=== PATIENT | female | born 1930 | race Caucasian/White ===

== ENCOUNTER 2017-03-07 15:52 | Inpatient (IN) | payer OTHER ==
[~2017-03-07] VITALS: Ht 165.1 cm; Wt 84.1 kg
[2017-03-07] VITALS (12 sets, daily range): BP systolic 130–167; BP diastolic 76–98; PULSE 72–85; TEMP 36.3–36.4; O2SAT 91–99; Ht 165.1 cm; Wt 84.1 kg
[~2017-03-07 15:52] MED LIST: ASPCH81 PO; ESSENTIAL ENZYMES PO; LETHICIN PO; MAGN400T6 PO; MINERALS PO; OMEG10007 PO; VITA PO; Vitamin D-3 PO; [UNRECOGNIZED DRUG - MIXTURE] PO; [UNRECOGNIZED DRUG - OTHER] PO; [UNRECOGNIZED DRUG - OTHER] PO
[2017-03-07] MEDS ORDERED: NiCARDipine HCL INJ 2.5 MG/ML 10 ML AMP ONE (16:00)
[2017-03-07] MEDS ORDERED: FENTANYL CITRATE INJ 50 MCG/1 ML 2 ML VIAL ONE (16:01)
[2017-03-07] MEDS ORDERED: HEPARIN SOD (PORCINE) 1000 UNIT/ML 10 ML VIAL ONE (16:01)
[2017-03-07] MEDS ORDERED: MIDAZOLAM HCL 1 MG/ML 2ML VIAL ONE (16:01)
[2017-03-07] MEDS ORDERED: NITROGLYCERIN/D5W 100MCG/ML 20ML SYR ONE (16:01)
[2017-03-07] MEDS ORDERED: MULT-506 PO (16:05)
[2017-03-07] MEDS ORDERED: ASPI-435 PO (16:05)
[2017-03-07] MEDS ORDERED: CO Q10 PO (16:06)
--- NOTE | 2017-03-07 16:11 | DIAGNOSTIC IMAGING REPORT ---
CHEST ONE VIEW PORTABLE CLINICAL HISTORY: CHEST PAIN dyspnea COMPARISON STUDY: 08/22/2006 FINDINGS: Moderate grade megaly. Findings of mild congestive failure. Diaphragms smooth. IMPRESSION: Moderate cardiomegaly. Mild congestive heart failure. Electronically signed by: Nigel Pierce M.D. 03/07/2017 4:09 PM Dictated Date/Time: 03/07/2017 4:09 PM
[2017-03-07 16:12] LABS: BASO % 0.1 %; BASO ABS # 0.01 K/uL (0-0.2); COMPLETE YES; EOS % 0.7 %; HEMATOCRIT 40.3 % (37-47); IG% 0.1 %; LYMPH % 25.1 %; LYMPH ABS # 1.85 K/uL (1.2-3.4); MEAN CORPUSCULAR HEMOGLOBIN 30.2 pg (25-34); MEAN CORPUSCULAR HGB CONC 33.3 g/dl (32-36); MEAN PLATELET VOLUME 11.2 fL (7.4-10.4); MONO % 7.3 %; NEUT % 66.7 %; PLATELET COUNT 166 K/uL (130-400); RED BLOOD COUNT 4.43 M/uL (4.2-5.4); WHITE BLOOD COUNT 7.36 K/uL (4.8-10.8)
--- NOTE | 2017-03-07 16:15 | EMERGENCY ROOM VISIT NOTE ---
History Report prepared by Pam: Carol Hernandez Under the Supervision of: Dr. Raman Brasher D.O. First contact with patient: 15:38 Stated Complaint: MYOCARDIAL INFARCTION History of Present Illness The patient is an 86 year old female who presents to the Emergency Room with complaints of persistent chest pain starting at 1400 today. She presents to the ED by EMS and received 324 mg of aspirin and [address]. She rates her discomfort as an 8/10 in severity en route. Upon arrival to the ED, she reports her pain has somewhat subsided. She was exerting herself with shopping yesterday , but was feeling normal when she went to bed at night. This morning, she slept in. When she got up she was going about her normal routine when the chest pain started. The pain goes through to her back. She denies any SOB. She only medication she takes is a baby aspirin daily. She is not on oxygen at home. She has a history of ovarian cancer. She still has her gallbladder and appendix. Source of History: patient Onset: 1400 today Position: chest Symptom Intensity: 8/10 Quality: other (pain) Timing: other (persistent) Associated Symptoms: + back pain, No SOB Review of Systems See HPI for pertinent positives & negatives. A total of 10 systems reviewed and were otherwise negative. Past Medical & Surgical Medical Problems: (1) Ovarian cancer Family History Non contributory secondary to age. Social History Marital Status: Occupation Status: retired Current/Historical Medications Scheduled Aspirin (Aspirin 81), 81 MG PO DAILY Multivitamin (Multivitamin), 1 TAB PO DAILY [Co Q10], 1 CAP PO DAILY Allergies Coded Allergies: Oxycodone (Verified Allergy, Intermediate, SEVERE NAUSEA NO APPITITE, 03/07) Physical Exam Vital Signs Date Time Temp Pulse Resp B/P Pulse Ox O2 Delivery O2 Flow Rate FiO2 03/07/17 17:40 78 16 135/90 95 Room Air 03/07/17 17:30 78 16 128/90 95 Room Air 03/07/17 16:27 97 Room Air 03/07/17 16:07 79 20 144/81 97 03/07/17 16:02 81 144/81 96 Room Air 03/07/17 15:57 83 148/90 100 Room Air 03/07/17 15:55 97 Room Air 03/07/17 15:54 36.8 79 21 144/81 97 Room Air 03/07/17 15:54 97 Room Air Physical Exam GENERAL: Patient is awake, alert, and mildly anxious appearing. EYES: The conjunctivae are clear. The pupils are round and reactive. EARS, NOSE, MOUTH AND THROAT: The nose is without any evidence of any deformity. Mucous membranes are moist tongue is midline NECK: The neck is nontender and supple. RESPIRATORY: Lung sounds diminished at both bases, there was no tachypnea or conversational dyspnea noted. CARDIOVASCULAR: Regular rate and rhythm noted there no murmurs rubs or gallops normal S1 normal S2 GASTROINTESTINAL: The abdomen is soft. Bowel sounds are present in all quadrants. Abdomen is nontender MUSCULOSKELETAL/EXTREMITIES: There is no evidence of gross deformity full range of motion is noted in the hips and shoulders SKIN: There is trace pedal edema bilaterally, no signs of cellulitis, pulses are symmetric NEUROLOGIC: Patient is awake alert and oriented x3 Medical Decision & Procedures ER Provider Diagnostic Interpretation: X-ray results as stated below per interpretation by me and the radiologist. CHEST ONE VIEW PORTABLE CLINICAL HISTORY: CHEST PAIN dyspnea COMPARISON STUDY: 08/22/2006 FINDINGS: Moderate grade megaly. Findings of mild congestive failure. Diaphragms smooth. IMPRESSION: Moderate cardiomegaly. Mild congestive heart failure. Electronically signed by: Nigel Pierce M.D. 03/07/2017 4:09 PM Dictated Date/Time: 03/07/2017 4:09 PM Laboratory Results Test 03/07/17 15:45 03/07/17 16:04 03/07/17 16:06 03/07/17 17:23 Prothrombin Time 11.5 SECONDS (9.0-12.0) Prothromb Time International Ratio 1.1 (0.9-1.1) Activated Partial Thromboplast Time 24.9 SECONDS (21.0-31.0) Partial Thromboplastin Ratio 1.0 Total Bilirubin 1.3 mg/dl (0.2-1) Direct Bilirubin 0.3 mg/dl (0-0.2) Aspartate Amino Transf (AST/SGOT) 50 U/L (15-37) Alanine Aminotransferase (ALT/SGPT) 42 U/L (12-78) Alkaline Phosphatase 110 U/L (45-117) Total Creatine Kinase 170 U/L (26-192) Creatine Kinase MB 4.1 ng/ml (0.5-3.6) Creatine Kinase MB Ratio 2.4 (0-3.0) Total Protein 7.8 gm/dl (6.4-8.2) Albumin 3.7 gm/dl (3.4-5.0) Lipase 109 U/L (73-393) Bedside Hemoglobin 13.9 g/dl (12.0-16.0) Bedside Hematocrit 41 % (37-47) Bedside Sodium 144 mEq/L (135-144) Bedside Potassium 4.1 mEq/L (3.3-5.0) Bedside Chloride 103 mEq/L (101-112) Bedside Total CO2 28 mEq/l (24-31) Bedside Blood Urea Nitrogen 16 mg/dl (7-18) Bedside Creatinine 0.9 mg/dl (0.6-1.3) Bedside Glucose (other) 104 mg/dl (70-99) Bedside Ionized Calcium (Mariza) 1.12 mmol/l (1.12-1.32) Bedside Troponin I 0.270 ng/ml (0-0.045) Kaolin Activated Coagulation Time 224 SECONDS (94-140) Laboratory results per my review. Medications Administered Medications (Trade) Dose Ordered Sig/Reji Route Start Time Stop Time Status Last Admin Dose Admin Heparin Sodium (Porcine) (Heparin Iv Bolus) 10,000 unit STK-MED ONCE .ROUTE 03/07/17 16:01 03/07/17 16:02 DC 03/07/17 16:01 9,000 UNIT Midazolam HCl (Versed Inj) 2 mg STK-MED ONCE .ROUTE 03/07/17 16:01 03/07/17 16:02 DC 03/07/17 16:01 1 MG Fentanyl Citrate (Fentanyl Inj) 100 mcg STK-MED ONCE .ROUTE 03/07/17 16:01 03/07/17 16:02 DC 03/07/17 16:01 25 MCG Eptifibatide (Integrilin Inj) 40 mg STK-MED ONCE IV 03/07/17 16:45 03/07/17 16:46 DC 03/07/17 16:45 40 MG Eptifibatide (Integrilin Inj) 75 mg STK-MED ONCE IV 03/07/17 16:45 03/07/17 16:46 DC 03/07/17 16:45 75 MG Clopidogrel Bisulfate (plAVix TAB) 600 mg STK-MED ONCE PO 03/07/17 17:32 03/07/17 17:33 DC 03/07/17 17:33 600 MG Nitroglycerin (Nitrostat Tab) 0.4 mg UD PRN SL 03/07/17 18:00 04/06/17 17:59 03/08/17 06:39 0.4 MG ECG Indication: chest pain Rate (beats per minute): 79 Rhythm: normal sinus Findings: no ectopy, other (continued ST segment elevation in high and low lateral leads and involving apical leads) Comparison ECG Date: 26-Jul-2007 Change: Changes are new. Previous EKG from EMS: NSR 62 RBBB, ST segment elevation in low lateral leads consistent with acute lateral wall VT. ED Course 155: The patient was evaluated in room B1. A complete history and physical examination were performed. 1605: The patient was taken to the laborer cook house. 1610: I discussed the patient's case with Dr. Fink, [facility] [place] - hospitalist. He will evaluate the patient for further management. Medical Decision Prior records/ancillary studies reviewed. Triage Nursing notes reviewed. Additional history obtained from EMS. The patient's history was concerning for chest pain. Differential diagnosis: Etiologies such as cardiac ischemia, aortic dissection, pulmonary embolism, pneumonia, pneumothorax, musculoskeletal, infections, pericarditis, myocarditis , esophageal rupture, gastrointestinal, as well as others were entertained. The patient is an 86-year-old female who presented to the emergency department by EMS for chest pain. I was alerted by the prehospital personnel because of an abnormal EKG the patient was made a heart alert for what appeared to be a low lateral wall myocardial infarction. The patient was taken directly to room B 1. The on-call service station manager arrived at the patient's room prior to her arrival and we reviewed her EKGs together. The patient was continuing to have pain. She was treated with aspirin and nitroglycerin prior to arrival. She was given a dose of heparin in the emergency department. I discussed the patient 's EKG with her and informed her that it was very consistent with an acute myocardial infarction. She was agreeable to being evaluated by the service station manager for cardiac catheterization. granite chip terrazzo finisher also discussed her options with her and she chose to go to the [facility]aying Machine Operator for emergent heart catheterization. The patient's initial EKG in our emergency department showed some progression into the apical leads with ST segment elevation and bundle-branch block. This appeared to be new compared to her most previous EKG. The patient was reevaluated and her pain started to improve but she was taken to the cardiac catheterization lab rather quickly. There was a report that the patient had hypoxia upon arrival of the prehospital personnel but this was not observed in the emergency Department the patient's oxygen saturation was normal and her chest x-ray only showed mild congestion. Consults Time Called: 1607 Consulting Physician: Dr. Fink [facility] [place] - hospitalist Returned Call: 1610 I discussed the patient's case with him. The patient will be evaluated for further management. Impression Primary Impression: Acute myocardial infarction of apical-lateral wall Additional Impressions: RBBB Chest pain Scribe Attestation The scribe's documentation has been prepared under my direction and personally reviewed by me in its entirety. I confirm that the note above accurately reflects all work, treatment, procedures, and medical decision making performed by me. Departure Information Dispostion Being Evaluated By Hospitalist Referrals Jc Rae D.ONolvia (PCP) Problem Qualifiers Additional Impressions: Chest pain Chest pain type: unspecified Qualified Codes: R07.9 - Chest pain, unspecified
[2017-03-07 16:18] LABS: ISTAT CREATININE 0.9 mg/dl (0.6-1.3); ISTAT HEMOGLOBIN 13.9 g/dl (12.0-16.0); ISTAT IONIZED CALCIUM 1.12 mmol/l (1.12-1.32)
[2017-03-07 16:20] LABS: INR 1.1 (0.9-1.1); PROTHROMBIN TIME (PATIENT) 11.5 SECONDS (9.0-12.0)
[2017-03-07] MEDS ORDERED: EPTIFIBATIDE 2 MG/ML 10 ML VIAL IV ONE (16:45)
[2017-03-07] MEDS ORDERED: EPTIFIBATIDE 0.75 MG/ML 75MG VIAL IV ONE (16:45)
[2017-03-07 16:57] LABS: BUN/CREATININE RATIO 16.4 (10-20); CKMB/CK RATIO 2.4 (0-3.0); CREATININE 0.94 mg/dl (0.60-1.20); POTASSIUM 4.5 mmol/L (3.5-5.1)
[2017-03-07] MEDS ORDERED: ADENOSINE IV SOLN 3 MG/ML 2 ML VIAL ONE (16:58)
[2017-03-07] MEDS ORDERED: CLOPIDOGREL BISULFATE 300 MG TAB PO ONE (17:32)
[2017-03-07] MEDS ORDERED: ONDANSETRON INJ 2 MG/ML 2 ML VIAL IV PRN (18:00)
[2017-03-07] MEDS ORDERED: LORAZEPAM INJ 0.5 MG in SYRINGE 0.75 ML IV PRN (18:00)
[2017-03-07] MEDS ORDERED: ACETAMINOPHEN 325 MG TAB PO PRN (18:00)
[2017-03-07] MEDS ORDERED: ATROPINE SULFATE 0.1 MG/ML 5ML SYR IV PRN (18:00)
[2017-03-07] MEDS ORDERED: EPTIFIBATIDE BOLUS / DRIP IV ONE (18:00)
[2017-03-07] MEDS ORDERED: SODIUM CHLORIDE 0.9% 1000ML 1,000 ML IV SCH (18:00)
[2017-03-07] MEDS ORDERED: ONDANSETRON INJ 8 MG in DEXTROSE 5% 50ML 50 ML IV PRN (18:00)
--- NOTE | 2017-03-07 18:24 | History and Physical ---
History & Physical Date & Time of Service: March 07, 2017 at 18:02 Chief Complaint: Myocardial Infarction Primary Care Physician: Jc Rae D.O. History of Present Illness Source: patient 86 y/o female, with PMHx of ovarian cancer, who presents to the ED w/ complaints of CP s/p cardiac catheterization by Dr. Greer for STEMI. Patient was seen postop. She is feeling well. Just overall fatigued. +nausea. +SOB. Patient denies any fever, chills, sweats, lightheadedness, dizziness, vision changes, CP , palpitations, edema, wheezing, cough, abdominal pain, vomiting, diarrhea, urinary symptoms, melena, numbness/tingling, weakness, muscle/joint pain, anxiety/depression, active bleeding, or new skin discoloration/changes. Past Medical/Surgical History PMHx: 1. Ovarian cancer Social History Smoking Status: Never Smoker Marital Status: Occupational Status: retired Immunizations History of Influenza Vaccine: Yes Influenza Vaccine Date: Sep 27, 2006 History of Tetanus Vaccine?: Yes Tetanus Immunization Date: Jan 22, 2006 History of Pneumococcal: Yes Pneumococcal Date: Jul 25, 2005 History of Hepatitis B Vaccine: No Multi-Drug Resistant Organisms History of MDRO: No Allergies Coded Allergies: Oxycodone (Verified Allergy, Intermediate, SEVERE NAUSEA NO APPITITE, 03/07) Home Medications Scheduled Aspirin (Aspirin 81), 81 MG PO DAILY Multivitamin (Multivitamin), 1 TAB PO DAILY [Co Q10], 1 CAP PO DAILY Physical Exam Vital Signs Date Time Temp Pulse Resp B/P Pulse Ox O2 Delivery O2 Flow Rate FiO2 03/07/17 17:40 78 16 135/90 95 Room Air 03/07/17 17:30 78 16 128/90 95 Room Air 03/07/17 16:27 97 Room Air 03/07/17 16:07 79 20 144/81 97 03/07/17 16:02 81 144/81 96 Room Air 03/07/17 15:57 83 148/90 100 Room Air 03/07/17 15:55 97 Room Air 03/07/17 15:54 36.8 79 21 144/81 97 Room Air 03/07/17 15:54 97 Room Air General Appearance: no apparent distress Head: normocephalic, atraumatic Eyes: normal inspection, PERRL ENT: hearing grossly normal Neck: supple Respiratory/Chest: no respiratory distress, no accessory muscle use, + wheezing (expiratory wheeze noted throughout all lung hernandez ) Cardiovascular: regular rate, rhythm Abdomen/GI: normal bowel sounds, non tender, soft Extremities/Musculoskelatal: no calf tenderness, no pedal edema Neurologic/Psych: alert, normal mood/affect, oriented x 3 Skin: warm/dry, no rash, + cyanosis (upper extremity nail beds ) Diagnostics Laboratory Results Results Past 24 Hours Test 03/07/17 15:45 03/07/17 16:04 03/07/17 16:06 03/07/17 16:47 Range/Units White Blood Count 7.36 4.8-10.8 K/uL Red Blood Count 4.43 4.2-5.4 M/uL Hemoglobin 13.4 12.0-16.0 g/dL Hematocrit 40.3 37-47 % Mean Corpuscular Volume 91.0 80-100 fL Mean Corpuscular Hemoglobin 30.2 25-34 pg Mean Corpuscular Hemoglobin Concent 33.3 32-36 g/dl Platelet Count 166 130-400 K/uL Mean Platelet Volume 11.2 7.4-10.4 fL Neutrophils (%) (Auto) 66.7 % Lymphocytes (%) (Auto) 25.1 % Monocytes (%) (Auto) 7.3 % Eosinophils (%) (Auto) 0.7 % Basophils (%) (Auto) 0.1 % Neutrophils # (Auto) 4.90 1.4-6.5 K/uL Lymphocytes # (Auto) 1.85 1.2-3.4 K/uL Monocytes # (Auto) 0.54 0.11-0.59 K/uL Eosinophils # (Auto) 0.05 0-0.5 K/uL Basophils # (Auto) 0.01 0-0.2 K/uL RDW Standard Deviation 49.6 36.4-46.3 fL RDW Coefficient of Variation 14.7 11.5-14.5 % Immature Granulocyte % (Auto) 0.1 % Immature Granulocyte # (Auto) 0.01 0.00-0.02 K/uL Prothrombin Time 11.5 9.0-12.0 SECONDS Prothromb Time International Ratio 1.1 0.9-1.1 Activated Partial Thromboplast Time 24.9 21.0-31.0 SECONDS Partial Thromboplastin Ratio 1.0 Sodium Level 142 136-145 mmol/L Potassium Level 4.5 3.5-5.1 mmol/L Chloride Level 108 98-107 mmol/L Carbon Dioxide Level 28 21-32 mmol/L Anion Gap 6.0 18.0 16-25 mmol/L Blood Urea Nitrogen 15 7-18 mg/dl Creatinine 0.94 0.60-1.20 mg/dl Est Creatinine Clear Calc Drug Dose 45.3 ml/min Estimated GFR () 62.8 Estimated GFR (Non- 54.2 BUN/Creatinine Ratio 16.4 10-20 Random Glucose 91 70-99 mg/dl Calcium Level 9.0 8.5-10.1 mg/dl Total Bilirubin 1.3 0.2-1 mg/dl Direct Bilirubin 0.3 0-0.2 mg/dl Aspartate Amino Transf (AST/SGOT) 50 15-37 U/L Alanine Aminotransferase (ALT/SGPT) 42 12-78 U/L Alkaline Phosphatase 110 45-117 U/L Total Creatine Kinase 170 26-192 U/L Creatine Kinase MB 4.1 0.5-3.6 ng/ml Creatine Kinase MB Ratio 2.4 0-3.0 Troponin I 0.436 0-0.045 ng/ml Total Protein 7.8 6.4-8.2 gm/dl Albumin 3.7 3.4-5.0 gm/dl Lipase 109 73-393 U/L Bedside Hemoglobin 13.9 12.0-16.0 g/dl Bedside Hematocrit 41 37-47 % Bedside Sodium 144 135-144 mEq/L Bedside Potassium 4.1 3.3-5.0 mEq/L Bedside Chloride 103 101-112 mEq/L Bedside Total CO2 28 24-31 mEq/l Bedside Blood Urea Nitrogen 16 7-18 mg/dl Bedside Creatinine 0.9 0.6-1.3 mg/dl Bedside Glucose (other) 104 70-99 mg/dl Bedside Ionized Calcium (Mariza) 1.12 1.12-1.32 mmol/l Bedside Troponin I 0.270 0-0.045 ng/ml Kaolin Activated Coagulation Time 296 94-140 SECONDS Test 03/07/17 17:23 03/07/17 17:48 Range/Units Kaolin Activated Coagulation Time 224 94-140 SECONDS Diagnostic Radiology CHEST ONE VIEW PORTABLE CLINICAL HISTORY: CHEST PAIN dyspnea COMPARISON STUDY: 08/22/2006 FINDINGS: Moderate grade megaly. Findings of mild congestive failure. Diaphragms smooth. IMPRESSION: Moderate cardiomegaly. Mild congestive heart failure. Electronically signed by: Nigel Pierce M.D. 03/07/2017 4:09 PM Dictated Date/Time: 03/07/2017 4:09 PM The status of this report is Signed. Draft = Not yet reviewed or approved by Radiologist. Signed = Reviewed and approved by Radiologist. EKG OVIDIO BRO ID:[id number] 07-MAR-2017 15:57:37 [facility] Sinus rhythm with 1st degree A-V block Right bundle branch block Left anterior fascicular block Bifascicular block Anterolateral infarct , possibly acute ACUTE AL / STEMI Abnormal ECG When compared with ECG of 26-JUL-2007 15:41, Significant changes have occurred Confirmed by Ronnell Shetty ([id number]) on 03/07/2017 5:31:42 PM 25mm/s 10mm/mV 150Hz 8.0 SP2 12SL 241 SHIN: 13 Referred by: Referred Self Confirmed By: Ronnell Shetty Vent. rate 79 BPM ME interval 228 ms QRS duration 142 ms QT/QTc 434/497 ms P-R-T axes 72 -49 28 1930 (86 yr) Female Room: Loc:15 Family Services Coordinator:NIKOS Ruffin ind: Impression Assessment and Plan 86 y/o female, with PMHx of ovarian cancer, who presents to the ED w/ complaints of CP s/p cardiac catheterization by Dr. Greer for STEMI on 03/07 STEMI s/p cardiac catheterization: - Admit to ICU - Cardiology following - ECHO pending - Continue ASA mg daily - Lipitor 80 mg daily, Plavix 75 mg daily, Lisinopril 5 mg daily, and Lopressor 25 mg BID started per cardiology - Lipid panel and ha1c pending - Follow CBC and PRP Wheezing: - Saturating at 85% on RA- O2 protocol- does NOT wear O2 supplement at home - DuoNebs PRN GI Prophylaxis: Protonix daily, IV Zofran PRN DVT prophylaxis: GILBERTO and SCDs Dispo: Discharge uncertain at this time Level of Care Critical Care VTE Prophylaxis Given or contraindicated: T.E.D. Stockings, SCD's
--- NOTE | 2017-03-07 18:29 | Procedure Note ---
Pre-Mod Sedation Assessment General Date of Moderate Sedation: March 07, 2017. Vital Signs: Vital Signs Past 12 Hours Date Time Temp Pulse Resp B/P Pulse Ox O2 Delivery O2 Flow Rate FiO2 03/07/17 17:40 78 16 135/90 95 Room Air 03/07/17 17:30 78 16 128/90 95 Room Air 03/07/17 16:27 97 Room Air 03/07/17 16:07 79 20 144/81 97 03/07/17 16:02 81 144/81 96 Room Air 03/07/17 15:57 83 148/90 100 Room Air 03/07/17 15:55 97 Room Air 03/07/17 15:54 36.8 79 21 144/81 97 Room Air 03/07/17 15:54 97 Room Air Review Cardiovascular: regular rate, rhythm, no JVD, + systolic murmur, + pertinent finding (pretibial edema) Abdomen: non tender, soft Lungs: lungs clear Pre-Sedation Airway Assessment Able to Visualize Vocal Cords: No Smoking Status: Never Smoker Mallampati Classification: Class III Procedure Planning Contraindications-for Mod Sed: None Yes Notes The planned sedation has been discussed with the patient and consent obtained. I have identified the patient, determined the appropriateness of sedation and have assessed the patient immediately prior to the procedure. All medicine(s) and interventions are by my order.
--- NOTE | 2017-03-07 18:30 | Procedure Note ---
Post-Mod Sedation Assessment General Date of Moderate Sedation March 07, 2017. Vital Signs: Vital Signs Past 12 Hours Date Time Temp Pulse Resp B/P Pulse Ox O2 Delivery O2 Flow Rate FiO2 03/07/17 17:40 78 16 135/90 95 Room Air 03/07/17 17:30 78 16 128/90 95 Room Air 03/07/17 16:27 97 Room Air 03/07/17 16:07 79 20 144/81 97 03/07/17 16:02 81 144/81 96 Room Air 03/07/17 15:57 83 148/90 100 Room Air 03/07/17 15:55 97 Room Air 03/07/17 15:54 36.8 79 21 144/81 97 Room Air 03/07/17 15:54 97 Room Air Review - Discharge Criteria Vital Signs Stable: Yes Alert/Oriented/Conversant: Yes Returned to Baseline Mental St: Yes Nausea Absent/Minimal: Yes Pain/Discomfort/Absent/Minimal: Yes Normal/Baseline Respirations: Yes Active Bleeding?: No Pt Received D/C Instructions: N/A Prescriptions Given: None Specific Proced. D/C Criteria Distal Pulses Present (Cardiac: Yes Groin site assessed-Card Cath: N/A Voided Prior To Discharge: N/A Discharged Patients Adult Escort/Transportation: N/A
--- NOTE | 2017-03-07 18:39 | Cardiac Catheterization ---
Procedure Note Procedure Date March 07, 2017. Pre-Procedure Diagnosis STEMI AUC Score 9 Post-Procedure Diagnosis Severe CAD, Successful PCI, Decreased LV Systolic Function, Elevated Intracardiac Pressures Procedure(s) Performed Coronary Angiography, Left Heart Cath, LV Angiography, PTCA, Aspiration Thrombectomy [employer] Dr. Greer Deployment Specialist(s) Cheli Apple, RTR Estimated Blood Loss 50 ml Medication(s) Clopidogrel (600 milligrams p.o. post PCI), Fentanyl, Heparin, Nicardipine ( Intracoronary and intra-arterial), Versed, Lidocaine 1%, Adenosine ( Intracoronary) Summary of Findings Clinical indications: Acute anterolateral myocardial infarction on electrocardiogram. Catheterization site: 6 Serbian glide sheath right radial artery. Equipment: 6 Serbian EBU 3.5 guide catheter, 5 Serbian brachial 3.5 diagnostic catheter, 6 Serbian pigtail diagnostic catheter, Subarctic Limited Sprinter 2.5 x 12 millimeter balloon dilatation catheter, [employer] extraction catheter, [place] guidewire. Protocol and findings: left coronary angiography was 1st performed with the guide catheter. This revealed a total early mid LAD occlusion. MAREN 0 flow. A cougar guidewire was then easily advanced into the distal LAD. It was felt that the guidewire had wrapped around the apex of the left ventricle. It repeatedly took the same track. PTCA was then performed to the mid LAD. MAREN 1 flow was established to the early distal LAD. The early distal LAD now had a total occlusion. After further PTCA to the latter mid and distal LAD , administration of intracoronary nicardipine and adenosine,and aspiration thrombectomy MAREN 3 flow was established into the distal LAD. The patient also received intracoronary nicardipine and adenosine. following balloon angioplasty the appearance of the mid LAD was smooth. There was no evidence of any underlying stenosis. No evidence of a dissection. The distal LAD was a very small caliber. The distal LAD had a focal 30-50 percent narrowing which may have represented a residual thrombus versus stenosis. MAREN 3 flow into the distal LAD. The caliber of distal LAD was approximately 1-1.5 millimeter. After flow was established into the distal LAD was seen to guidewire was actually in a distal septal perforating branch. It was repositioned into the distal LAD. 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 The contrast would clear with each beat quickly. Aspiration thrombectomy removed several very small red thrombi. Because there was no evidence of any underlying residual stenosis it was decided not to deploy a stent in the LAD. Right coronary angiography was then performed. Left ventricular angiography was then performed. Following reperfusion of the LAD the patient's chest pain and ST segment elevations in the monitored leads improved. She was hemodynamically stable. No significant arrhythmias. Fluoroscopy revealed coronary calcifications. The coronary circulation was right dominant. Short and large caliber left main coronary artery without obstructive disease. It gave rise to large caliber left anterior descending and left circumflex coronary arteries. Initial angiography revealed a total early mid LAD occlusion. The proximal LAD gave rise to a long medium caliber diagonal artery which had minor luminal irregularities. Following the origin of a prominent bifurcating septal perforating branch early mid LAD had a total occlusion. MARNE 0 flow. After initial PTCA MAREN 1 flow. After further PTCA, aspiration thrombectomy, nd administration of intracoronary nicardipine and adenosine MAREN 3 flow was present into the distal LAD. There is no evidence of any residual stenosis in the mid LAD. No evidence of dissection. No evidence of any residual thrombus. No perforation. The distal LAD had a small residual filling defect with approximately 30-50 percent luminal diameter narrowing. This was felt to likely represent residual thrombus versus an underlying stenosis. the left circumflex had an ostial proximal 20 percent stenosis. The mid circumflex gave rise to a long medium calibr 1st marginal artery which had a 0-10 percent proximal stenosis. The mid circumflex had a 0-10 percent stenosis. The distal circumflex gave rise to a long small to medium caliber 2nd marginal artery and a small to medium caliber posterolateral artery. These vessels had mild 0-10 percent stenoses. The right coronary artery was a medium large caliber vessel. Proximal 0-10 percent stenosis. Mid 20 percent stenosis. The mid RCA gave rise to a prominent right ventricular branch. The latter mid RCA had a 10-20 percent stenosis. The distal RCA gave rise to a long small caliber posterior descending artery and a small caliber posterolateral artery. Left ventricular angiography performed from the 30 degree right anterior oblique projection revealed normal wall motion in the posterobasal, diaphragmatic, and anterobasal segments. The anterolateral segment was hypokinetic. The apex was akinetic to dyskinetic. estimated left ventricular ejection fraction 40 percent. No mitral regurgitation noted. Hemostasis: Terumo TR band. Complications: None. Plan: The patient was given a loading dose of oral clopidogrel post intervention. She was admitted to the intensive care unit. Remain on intravenous Integrilin for 18 hours. She will be started on beta-umu, JOS inhibitor, and statin therapy. Serial electrocardiograms and cardiac enzymes. Serial CBC and metabolic profiles. Echocardiogram to further assess left ventricular wall motion. Hemodynamics Rest Ao: 143/75/105 millimeters Hg Final Ao: 115/61/84 millimeters Hg LV: 115/25 millimeters Hg Recommendations Medical therapy and/or Counseling, PCI without planned CABG Specimens Several small red thrombi removed with aspiration thrombectomy. These were not submitted. Radiation Exposure (mGy) 3981 Contrast (mls) 270 milliliters Visipaque Fluids (cc crystalloids) 130 milliliters Drains None Anesthesia Intravenous Versed and fentanyl. Lidocaine 1 % local Procedural Complication(s) None Disposition ICU ACC Data Cardiac Status Clinical evaluation leading to the procedure CAD Presntation: STEMI Anginal Classification: CCS IV Heart Failure: No Cardiogenic Shock w/in 24Hrs: No Cardiac Arrest w/in 24Hrs: No Imaging studies past 6 months: No Stress studies past 6 months: No Standard Exercise Stress Test: No Stress Echocardiogram: No Stress Testing w/SPECT MPI: No Cardiac CTA: No Coronary Anatomy Dominant: Right Left Main (% Stenosis): Normal LAD (% Stenosis): Mid (100), Distal (30-50) D1 (% Stenosis): Proximal (0-10) Circumflex (% Stenosis): Ostial (20), Proximal (20), Mid (0-10) OM1 (% Stenosis): Proximal (0-10) OM2 (% Stenosis): Normal L PL1 (% Stenosis): Normal RCA (% Stenosis): Proximal (0-10), Mid (20,10-20) R PDA (% Stenosis): Normal R PL1 (% Stenosis): Normal Left Ventricular Angiography EF (%): 40 Wall Motion: Inferior (Normal), Apical (Akinetic), Anterior (Hypokinetic) Mitral Regurgitation: None Diagnostic Physician's Name: Johnny Greer M.D. Status: Emergency Closure Device Percutaneous Entry Location: Radial Closure Device: Radial Band Recommendations: Medical therapy and/or Counseling, PCI without planned CABG PCI Indication: Immediate PCI for STEMI Lesion Segment Name: Mid LAD Culprit Artery: Yes Stenosis Prior to Rx (%): 100 Chronic Total Occlusion: No IVUS: No FFR: No Pre-Procedure MAREN Flow: 3 Previously Treated Lesion: No Lesion Complexity: Non-High/Non-C Lesion Length (mm): 15 Thrombus Present: Yes Bifurcation Lesion: No Guidewire Across Lesion: Yes Guidewire: Stenosis Post-Procedure (%): 0-10 Post-Procedure MAREN Flow: 3 Device(s) Deployed: No Intraprocedure Events Significant Dissection: No Perforation: No
[2017-03-07 19:18] LABS: BASO % 0.1 %; BASO ABS # 0.01 K/uL (0-0.2); EOS % 0.1 %; HEMATOCRIT 38.7 % (37-47); IG% 0.1 %; LYMPH % 8.4 %; LYMPH ABS # 0.66 K/uL (1.2-3.4); MEAN CELL VOLUME 91.5 fL (80-100); MEAN CORPUSCULAR HEMOGLOBIN 30.3 pg (25-34); MEAN PLATELET VOLUME 10.4 fL (7.4-10.4); MONO % 3.7 %; NEUT % 87.6 %; PLATELET COUNT 181 K/uL (130-400); RED BLOOD COUNT 4.23 M/uL (4.2-5.4); WHITE BLOOD COUNT 7.89 K/uL (4.8-10.8)
[2017-03-07 19:23] LABS: COMPLETE YES; MEAN CORPUSCULAR HGB CONC 33.1 g/dl (32-36)
[2017-03-07 19:39] LABS: BUN/CREATININE RATIO 18.3 (10-20); CALCIUM 8.5 mg/dl (8.5-10.1); CHOLESTEROL 166 mg/dl (0-200); CHOLESTEROL/HDL RATIO 2.4; CREATININE 0.86 mg/dl (0.60-1.20); HDL CHOLESTEROL 68 mg/dl; POTASSIUM 4.3 mmol/L (3.5-5.1); TRIGLYCERIDES 49 mg/dl (0-150); VERY LOW DENSITY LIPOPROT CALC 10 mg/dl
[2017-03-07] MEDS: METOPROLOL TARTRATE 25 MG TAB PO SCH (19:59)
[2017-03-07] MEDS ORDERED: ALBUT/IPRATROP 3MG/0.5MG NEB 3 ML VIAL INH SCH (20:00)
[2017-03-07] MEDS: ALBUT/IPRATROP 3MG/0.5MG NEB 3 ML VIAL INH SCH (20:00)
[2017-03-07] MEDS ORDERED: FUROSEMIDE INJ 20 MG in SYRINGE 0 ML IV ONE (20:00)
[2017-03-07] MEDS: EPTIFIBATIDE INJ 75 MG PREMIXED IV SCH ×2 (20:19→22:15)
--- NOTE | 2017-03-07 21:40 | Critical Care Consultation ---
Critical Care Consultation Date of Consultation: March 07, 2017. Attending Physician: Charles Oconnell D.O. Reason for Consultation: S/P Heart Catheterization History of Present Illness Ramya Rodriguez is an 86-year-old female who presented to the emergency department today with her son via EMS for sudden onset chest pain radiating to her back at an 8 out of 10. She states the pain came over her while preparing lunch and she continued to weight to about 1 PM before contacting a granddaughter. Her granddaughter stated to having a heart attack and coming to take you to the emergency department; some point her son was also called and he called EMS to transport his mother to the hospital. She denies any alleviating or aggravating symptoms during this pain. She does state that she's had intermittent chest pain, more consistent with reflux over the past several months; at which point drinking water would help. She tried this again today and it did not alleviate this pain. In the EMS vehicle, she chewed 324 mg of aspirin and received 2 nitroglycerin. By the time she presented to [facility] ED; the majority of her pain had somewhat subsided. When talking to me this evening she stated that she felt that she had overexerted herself while shopping with her daughter. She denied shortness of breath, loss of consciousness, nausea, dizziness or lightheadedness. She has had no recent illnesses and was in her normal health as of lately. She states that she routinely follows with her family practice doctor and for the most part all tests and labs are normal. She does state that she know she has a "leaky valve ". Otherwise she says she has taken good care of her body by never smoking or drinking and taking supplemental vitamins. EKG in the emergency department demonstrated ST segment elevation in the lateral leads and she was taken to the [facility] by Dr. Greer where he removed several small red thrombi with aspiration thrombectomy. He approached via her right radial artery. Patient did not receive stents during this catheterization. Patient denies fever/chills, shortness of breath/dyspnea, or cough. She does state that she has ongoing mild pain in the same location as this afternoon; however, it is now a nagging 1 out of 10. She denies change in bowel habits or urinary habits, upset stomach, abdominal pain. She denies numbness or tingling of her extremities. She is in overall good spirits. Past Medical/Surgical History Medical Problems: Ovarian cancer Murmur Family History Noncontributory Social History Smoking Status: Never Smoker Smokeless Tobacco Use: No Alcohol Use: none Drug Use: none Marital Status: Housing Status: lives with family Occupation Status: retired Allergies Coded Allergies: Oxycodone (Verified Allergy, Intermediate, SEVERE NAUSEA NO APPITITE, 03/07) Home Medications Scheduled Aspirin (Aspirin 81), 81 MG PO DAILY Multivitamin (Multivitamin), 1 TAB PO DAILY [Co Q10], 1 CAP PO DAILY Current Inpatient Medications Current Inpatient Medications Medications (Trade) Dose Ordered Sig/Reji Route Start Time Stop Time Status Last Admin Dose Admin Nitroglycerin (Nitrostat Tab) 0.4 mg UD PRN SL 03/07/17 18:00 04/06/17 17:59 Atropine Sulfate (Atropine Sulfate 0.1MG/Ml Inj) 0.5 mg ONE PRN IV 03/07/17 18:00 04/06/17 17:59 Ondansetron HCl 4 mg 4 mg Q6H PRN IV 03/07/17 18:00 04/06/17 17:59 Ondansetron HCl/ Dextrose (Zofran Inj/D5 50ml) 54 ml @ 200 mls/hr Q6H PRN IV 03/07/17 18:00 04/06/17 17:59 Aspirin (Ecotrin Tab) 81 mg QAM PO 03/08/17 09:00 04/07/17 08:59 Clopidogrel Bisulfate (plAVix TAB) 75 mg QAM PO 03/08/17 09:00 04/07/17 08:59 Atorvastatin Calcium (Lipitor Tab) 80 mg QAM PO 03/08/17 09:00 04/07/17 08:59 Metoprolol Tartrate (Lopressor Tab) 25 mg Q12 PO 03/07/17 21:00 04/06/17 20:59 03/07/17 19:59 25 MG Acetaminophen 650 mg 650 mg Q4H PRN PO 03/07/17 18:00 04/06/17 17:59 Lorazepam/Syringe (Ativan Inj/ Syringe) 1 ml @ 1 mls/min Q6H PRN IV 03/07/17 18:00 04/06/17 17:59 Lisinopril (Zestril Tab) 5 mg QAM PO 03/08/17 09:00 04/07/17 08:59 Pantoprazole Sodium 40 mg 40 mg QAM PO 03/08/17 09:00 04/07/17 08:59 Eptifibatide (Integrilin Inj) 100 ml @ 14 mls/hr Q7H9M IV 03/07/17 18:45 03/08/17 11:00 03/07/17 20:19 14 MLS/HR Miscellaneous (Stop Order) 1 ea TODAY@1100 ONCE N/A 03/08/17 11:00 03/08/17 11:01 Albuterol/ Ipratropium (Duoneb) 3 ml QIDR INH 03/07/17 20:00 04/06/17 19:59 03/07/17 20:00 3 ML Review of Systems 12 systems reviewed and negative other than previously mentioned in the HPI. Physical Exam Date Time Temp Pulse Resp B/P Pulse Ox O2 Delivery O2 Flow Rate FiO2 03/07/17 20:40 74 14 97 Nasal Cannula 2.0 03/07/17 20:30 83 31 167/92 98 03/07/17 20:00 99 Nasal Cannula 2.0 03/07/17 20:00 36.3 74 16 167/94 99 Nasal Cannula 2.0 03/07/17 19:30 81 22 161/91 99 03/07/17 19:15 82 31 154/81 99 03/07/17 19:03 36.4 79 16 141/76 95 Room Air 03/07/17 19:00 81 19 159/98 99 03/07/17 18:45 83 28 157/89 98 03/07/17 18:30 85 24 164/93 98 03/07/17 17:40 78 16 135/90 95 Room Air 03/07/17 17:30 78 16 128/90 95 Room Air 03/07/17 16:27 97 Room Air 03/07/17 16:07 79 20 144/81 97 03/07/17 16:02 81 144/81 96 Room Air 03/07/17 15:57 83 148/90 100 Room Air 03/07/17 15:55 97 Room Air 03/07/17 15:54 36.8 79 21 144/81 97 Room Air 03/07/17 15:54 97 Room Air Vital Signs - as noted Laboratory Data - as noted Physical Exam: General - NAD, resting comfortably in bed Eyes - PERRL, EOMI No icterus, gaze conjugate ENT - Mucosa moist, no lesions or candidiasis Neck - Supple, trachea midline, no masses or lymphadenopathy, no JVD or bruits Lungs - No paradoxical chest wall movement, diminished bilaterally, no wheezes, rales, or rhonchi Heart - Reg rate and rhythm, No murmur appreciated, rubs, clicks, or gallops appreciated Abdomen - normoactive BS present, no bruits noted, tympanic to percussion, soft , nontender, nondistended, no organomegaly Extremities - No edema, pedal pulses intact, clean and dry bandage at site of right radial approach. Neuro - A&OX4 Strength extremities equal and appropriate bilaterally Reflexes: normal and equal CN:PERRL, EOMI, no facial asymmetry, uvula/tongue midline Laboratory Results Last 24 Hours Test 03/07/17 15:45 03/07/17 16:04 03/07/17 16:06 03/07/17 16:47 White Blood Count 7.36 K/uL Red Blood Count 4.43 M/uL Hemoglobin 13.4 g/dL Hematocrit 40.3 % Mean Corpuscular Volume 91.0 fL Mean Corpuscular Hemoglobin 30.2 pg Mean Corpuscular Hemoglobin Concent 33.3 g/dl Platelet Count 166 K/uL Mean Platelet Volume 11.2 fL Neutrophils (%) (Auto) 66.7 % Lymphocytes (%) (Auto) 25.1 % Monocytes (%) (Auto) 7.3 % Eosinophils (%) (Auto) 0.7 % Basophils (%) (Auto) 0.1 % Neutrophils # (Auto) 4.90 K/uL Lymphocytes # (Auto) 1.85 K/uL Monocytes # (Auto) 0.54 K/uL Eosinophils # (Auto) 0.05 K/uL Basophils # (Auto) 0.01 K/uL RDW Standard Deviation 49.6 fL RDW Coefficient of Variation 14.7 % Immature Granulocyte % (Auto) 0.1 % Immature Granulocyte # (Auto) 0.01 K/uL Prothrombin Time 11.5 SECONDS Prothromb Time International Ratio 1.1 Activated Partial Thromboplast Time 24.9 SECONDS Partial Thromboplastin Ratio 1.0 Sodium Level 142 mmol/L Potassium Level 4.5 mmol/L Chloride Level 108 mmol/L Carbon Dioxide Level 28 mmol/L Anion Gap 6.0 mmol/L 18.0 mmol/L Blood Urea Nitrogen 15 mg/dl Creatinine 0.94 mg/dl Est Creatinine Clear Calc Drug Dose 45.3 ml/min Estimated GFR () 62.8 Estimated GFR (Non- 54.2 BUN/Creatinine Ratio 16.4 Random Glucose 91 mg/dl Calcium Level 9.0 mg/dl Total Bilirubin 1.3 mg/dl Direct Bilirubin 0.3 mg/dl Aspartate Amino Transf (AST/SGOT) 50 U/L Alanine Aminotransferase (ALT/SGPT) 42 U/L Alkaline Phosphatase 110 U/L Total Creatine Kinase 170 U/L Creatine Kinase MB 4.1 ng/ml Creatine Kinase MB Ratio 2.4 Troponin I 0.436 ng/ml Total Protein 7.8 gm/dl Albumin 3.7 gm/dl Lipase 109 U/L Bedside Hemoglobin 13.9 g/dl Bedside Hematocrit 41 % Bedside Sodium 144 mEq/L Bedside Potassium 4.1 mEq/L Bedside Chloride 103 mEq/L Bedside Total CO2 28 mEq/l Bedside Blood Urea Nitrogen 16 mg/dl Bedside Creatinine 0.9 mg/dl Bedside Glucose (other) 104 mg/dl Bedside Ionized Calcium (Mariza) 1.12 mmol/l Bedside Troponin I 0.270 ng/ml Kaolin Activated Coagulation Time 296 SECONDS Test 03/07/17 17:23 03/07/17 19:06 Kaolin Activated Coagulation Time 224 SECONDS White Blood Count 7.89 K/uL Red Blood Count 4.23 M/uL Hemoglobin 12.8 g/dL Hematocrit 38.7 % Mean Corpuscular Volume 91.5 fL Mean Corpuscular Hemoglobin 30.3 pg Mean Corpuscular Hemoglobin Concent 33.1 g/dl Platelet Count 181 K/uL Mean Platelet Volume 10.4 fL Neutrophils (%) (Auto) 87.6 % Lymphocytes (%) (Auto) 8.4 % Monocytes (%) (Auto) 3.7 % Eosinophils (%) (Auto) 0.1 % Basophils (%) (Auto) 0.1 % Neutrophils # (Auto) 6.91 K/uL Lymphocytes # (Auto) 0.66 K/uL Monocytes # (Auto) 0.29 K/uL Eosinophils # (Auto) 0.01 K/uL Basophils # (Auto) 0.01 K/uL RDW Standard Deviation 49.3 fL RDW Coefficient of Variation 14.7 % Immature Granulocyte % (Auto) 0.1 % Immature Granulocyte # (Auto) 0.01 K/uL Sodium Level 141 mmol/L Potassium Level 4.3 mmol/L Chloride Level 107 mmol/L Carbon Dioxide Level 28 mmol/L Anion Gap 6.0 mmol/L Blood Urea Nitrogen 16 mg/dl Creatinine 0.86 mg/dl Est Creatinine Clear Calc Drug Dose 49.5 ml/min Estimated GFR () 69.9 Estimated GFR (Non- 60.3 BUN/Creatinine Ratio 18.3 Random Glucose 108 mg/dl Calcium Level 8.5 mg/dl Triglycerides Level 49 mg/dl Cholesterol Level 166 mg/dl HDL Cholesterol 68 mg/dl LDL Cholesterol Direct 84 mg/dl LDL Cholesterol, Calculated mg/dl VLDL Cholesterol, Calculated 10 mg/dl Cholesterol/HDL Ratio 2.4 Diagnostic Results Electrocardiogram 03/07/2017 1853 Reviewed: Rate of 80, QTc 479 CHEST ONE VIEW PORTABLE CLINICAL HISTORY: CHEST PAIN dyspnea COMPARISON STUDY: 08/22/2006 FINDINGS: Moderate grade megaly. Findings of mild congestive failure. Diaphragms smooth. IMPRESSION: Moderate cardiomegaly. Mild congestive heart failure. Electronically signed by: Nigel Pierce M.D. 03/07/2017 4:09 PM Dictated Date/Time: 03/07/2017 4:09 PM Assessment & Plan (1) Acute myocardial infarction of apical-lateral wall (2) Chest pain (3) RBBB Cardiac: * Cath'd with Thrombectomy by Dr. Greer * Obtained ECHO * Trend Troponin * Integrilin rate & recommendations per Dr. Greer * Continue Post-SC Medications * Lopressor po q 12h * ASA 81mg qAM * Atorvastatin 80mg qAM * Lisinopril 5mg qAM * Supplemental O2 as needed * Monitor on telemetry * Repeat EKG qAM * Will need to obtain outpatient cardiac follow-up Pulm: * Monitor on telemetry * Supplemental oxygen as needed ID: * No sign of infection * Monitor daily labs and fever curve GI: * Diet placed * Pantoprazole 40 mg qAM Endocrine: * Hemoglobin A1c pending * Obtain TSH this admission Renal/electrolytes: * Monitor electrolytes and replete as indicated * Monitor I's and O's * Creatinine WNL Neuro: * Pain well controlled * No focal neurological symptoms; monitor for changes Access: [address] CCT: 47 minutes; Not including any billable procedures. Thank you for including us in the care of this patient. Please review Dr. Charles Oconnell's addendum for further recommendations. I have personally evaluated and examined this patient. I agree with assessment and plan of Kathy Navarro PA-C. Patient requiring intensive cardiac monitoring, required IV antihypertensives secondary to elevated blood pressure.
[2017-03-08] VITALS (22 sets, daily range): BP systolic 138–176; BP diastolic 75–98; PULSE 64–87; TEMP 36.5–36.6; O2SAT 95–100
--- NOTE | 2017-03-08 03:21 | CARDIOLOGY CONSULTATION ---
DATE OF CONSULTATION: 03/07/2017 REFERRING PHYSICIAN: Raamn Brasher DO. CONSULTING PHYSICIAN: Johnny Greer MD. PRIMARY PHYSICIAN: Martin Rae DO. HISTORY: The patient is an 86-year-old white female. She denies any prior history of heart disease. She denies any chronic medical illnesses. Her only medication at the time of admission was aspirin 81 mg daily. Between 1:00 and 2:00 p.m. this afternoon while at rest, she developed a severe mid retrosternal dull to aching chest pain which radiated to her back. She had associated nausea and dyspnea. Because the pain persisted, she called EMS. An electrocardiogram was performed by EMS in the field. This revealed evidence of an anterolateral myocardial infarction. Based on this electrocardiogram which was transmitted to [facility], a heart alert was called. The EMS staff report that when they arrived at the patient's house, she had oxygen saturations less than 90%. Also, her fingers appeared cyanotic. With supplemental oxygen, her oxygen saturations normalized. Upon arrival to the Emergency Department, the patient was promptly evaluated by Dr. Brasher. I was also in attendance on her arrival. She stated that her chest pain had decreased in intensity compared to when she was at home. In the ambulance, she did receive 324 mg of chewable aspirin as well as 2 sublingual nitroglycerins. In the Emergency Department, she had no complaint of dyspnea. After evaluation of the patient by Dr. Brasher and myself, it was recommended to her that she undergo emergency cardiac catheterization and possible coronary intervention. A repeat electrocardiogram performed after arrival in the Emergency Department revealed sinus rhythm with first-degree atrioventricular block. Right bundle-branch block. Left anterior fascicular block. ST-segment elevations in leads V2-V6 consistent with acute myocardial injury. The patient consented to the procedure. She was then brought to the cardiac catheterization laboratory. Cardiac catheterization was performed via the right radial artery. A 6-[place]. Left coronary angiography revealed a total early mid LAD occlusion. No significant atherosclerotic disease in the left main or left circumflex coronary arteries. A guidewire was easily passed across the occlusion in the early mid LAD. Balloon angioplasty was then performed to the mid LAD. MAREN-1 flow was established into the distal LAD. After balloon angioplasty to mid LAD, there was no evidence of any significant residual underlying stenosis. No evidence of dissection. The distal LAD was totally occluded. This was felt to possibly represent a thromboembolic event. Balloon angioplasty was performed to the distal LAD. Also, aspiration thrombectomy was performed. Intracoronary nicardipine and adenosine were administered. With all these treatments, there was establishment of MAREN-3 flow into the apical LAD. The very distal LAD was of extremely small caliber. In the distal LAD, there remained a small filling defect. In the distal LAD there appeared to be an arterial venous fistula. 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 ( Terminal portion of coronary artery empties into a ventricular cavity) . This was in the terminal portion of a distal septal perforating branch switch to guidewire repeatedly entered. The guidewire easily passed through the septal without any resistance. When flow was reestablished to the distal LAD and the guidewire was seen to be in the septal it was repositioned in the very distal LAD. Right coronary angiography was then performed. Mild atherosclerotic disease. Left ventricular angiography was performed with a hand injection of contrast dye. This revealed apical akinesis to dyskinesis. Anterolateral severe hypokinesis to akinesis. Estimated LV ejection fraction 40-45%. Left ventricular end-diastolic pressure was 25 mmHg. Following intervention to the LAD, the patient's chest discomfort resolved. She did complain of back pain which she felt was musculoskeletal. It was different pain than that which she complained of at the time of admission. She was hemodynamically stable throughout the procedure. She had no significant arrhythmias. Hemostasis was obtained at the right radial catheterization site with application of a Terumo TR band. During the procedure, the patient received intravenous Integrilin and heparin. Therapeutic activated clotting time was documented. 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 There was a flash of contrast. This cleared on each beat. She was hemodynamically stable and manifested no evidence of cardiac tamponade in the lab. The contrast cleared on each beat. It rapidly cleared. This was consistent with an arteriovenous fistula. The patient was admitted to the intensive care unit. In the intensive care unit, she has been stable hemodynamically. This evening she was seen by me. Her most recent blood pressure was 141/76. Pulse 79. She denies any chest pain. She complains of a musculoskeletal type lower and upper back pain. She states that she frequently has this type of discomfort. Prior to admission, she had not noted any decrease in exercise tolerance. No orthopnea or PND. No palpitations, lightheadedness or syncope. Chronic lower extremity edema. This improves with elevation of her legs overnight or with the use of support hose. PAST MEDICAL HISTORY: 1. She denies history of hypertension, diabetes mellitus, or dyslipidemia. 2. She denies any chronic medical illnesses. 3. History of ovarian cancer. Treated with surgery approximately 10 years ago. No adjuvant therapy. She apparently is cancer free since then. PAST SURGICAL HISTORY: 1. Status post tonsillectomy. 2. Status post pelvic surgery for ovarian cancer approximately 10 years ago. MEDICATIONS AT THE TIME OF ADMISSION: Aspirin 81 mg daily. ALLERGIES AND ADVERSE DRUG REACTIONS: OXYCODONE. SOCIAL HISTORY: The patient is a . One of her daughters lives with her. She does not smoke cigarettes. She does not drink alcohol. FAMILY HISTORY: She denies any family history of heart disease. REVIEW OF SYSTEMS: 1. As above. 2. No focal motor weakness. No symptoms suggestive of CVA or TIA. 3. No GI complaints. 4. No bleeding complaints. 5. Urinary frequency and urgency. This is chronic. 6. Chronic back pain. 7. Occasional postprandial epigastric discomfort. 8. No fevers or chills. PHYSICAL EXAMINATION: VITAL SIGNS: In the Emergency Department, blood pressure was 144/81. Pulse was 79. Pulse oximetry on room air was 97%. NECK: Jugular venous pressure approximately 8-9 cm. Carotids 2/2 bilaterally. Normal upstroke. No bruits. HEAD: Normal. EYES: Pupils equal and round. Anicteric. Conjunctivae normal. No xanthelasma. LUNGS: In the Emergency Department, she had scant rales at the left base. Otherwise, her lung hernandez were clear. When she was seen by me this evening in the ICU, she has wheezes in the lower lung heranndez. Also rales in the lower lung hernandez. HEART: Regular rate and rhythm. S1, S2 normal. No S3 or S4. 2/6 systolic murmur second intercostal space. The aortic valve closing sound is present. No diastolic murmur or rub heard. ABDOMEN: Surgical scar present. No palpable masses or organomegaly. No bruits. EXTREMITIES: Trace to 1+ pretibial edema bilaterally. PULSES: Radial and dorsalis pedis pulses strongly palpable bilaterally. NEUROLOGIC: Alert and oriented x3. Motor grossly intact. PSYCHIATRIC: Affect normal. DATA: Chest x-ray performed in the Emergency Department and reviewed by me showed mild pulmonary vascular congestion. Electrocardiogram in the Emergency Department with sinus rhythm with first-degree AV block. Right bundle-branch block. Left axis deviation and left anterior fascicular block. ST-segment elevations in V2-V6. Electrocardiogram performed post-PCI shows sinus rhythm. MO interval approximately 200 milliseconds. Right bundle-branch block, left axis deviation, left anterior fascicular block. Alternating QRS duration. Alternating intraventricular conduction. The first complexes in leads V1 through V3 show a right bundle-branch block without ST elevations. The first complex in leads V4 through V6 shows Q-waves. Decreased ST-segment elevations in V4 and V5 compared to the earlier electrocardiogram. The other complexes in leads V1 through V6 show widened QRS duration compared to the first complexes in these respective leads. CBC in the Emergency Department revealed WBC 7.36, hemoglobin 13.4, hematocrit 40.3, platelet count 166. Post-PCI and Integrilin, CBC with WBC 7.89, hemoglobin 12.8, hematocrit 38.7, platelet count 181,000. Baseline INR 1.1. ACT during the procedure was 296 seconds. Initial metabolic profile in the Emergency Department was sodium 142, potassium 4.5, chloride 108, carbon dioxide 28, BUN 15, creatinine 0.94, random glucose 91. Total bilirubin 1.3. AST 50. ALT 42. Total CK 170 with MB of 4.1. Troponin I 0.436. Post-PCI metabolic profile was sodium 141, potassium 4.3, chloride 107, carbon dioxide 28, BUN 16, creatinine 0.86. Lipid profile with triglycerides 49, total cholesterol 166, direct LDL 84, HDL 68. ASSESSMENT: 1. Acute anterior myocardial infarction secondary to total occlusion of left anterior descending artery. Successful intervention to the left anterior descending artery occlusion with balloon angioplasty and aspiration thrombectomy. No residual underlying stenosis following mandaeism of flow from the mid to distal left anterior descending artery. Following intervention to the mid left anterior descending artery, there was evidence of thromboembolic event or no reflow in the distal left anterior descending artery. Improvement with intracoronary nicardipine and adenosine. Also aspiration thrombectomy. The aspiration thrombectomy removed several small red thrombi. At the completion of procedure, MAREN-3 flow into the apical left anterior descending artery. Residual filling defect in the distal left anterior descending artery. No conclusive etiology for the thrombus in the left anterior descending artery based on angiography. Following mandaeism of flow into the mid left anterior descending artery, there was no evidence of any underlying residual stenosis. The patient may have ruptured a small plaque resulting in the thrombus formation. She is in sinus rhythm. This would go against any type of thromboembolic event from atrial fibrillation. No history of atrial fibrillation. She has anterior apical wall motion abnormality on left ventricular angiography. Certainly could not exclude a thromboembolic event from a left ventricular thrombus. However, suspect that these wall motion abnormalities are new and secondary to her acute myocardial infarction. 2. Mild heart failure on exam in the Emergency Department. Post-percutaneous coronary intervention, she has increased evidence of pulmonary vascular congestion. 3. No significant arrhythmias. 4. Bifascicular block. Right bundle-branch block and left anterior fascicular block. On the post-percutaneous coronary intervention electrocardiogram, she has varying duration of her QRS complexes. Varying intraventricular conduction delay. 5. No evidence of vascular complications at right radial catheterization site thus far. 6. 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 PLAN: 1. Stop intravenous fluids now. This is post-PCI. This is in light of the evidence of development of heart failure. 2. Furosemide 20 mg IV now. 3. Bronchodilator treatment with nebulizer. 4. Beta-umu, aspirin, clopidogrel, statin, and JOS inhibitor therapy. 5. Serial electrocardiograms and cardiac enzymes. 6. Echocardiogram on 03/08/2017 to further assess left ventricular systolic function. 7. Monitor closely for any worsening conduction abnormalities. I will be away until 03/10/2017. Dr. Ronnell Pal will be covering for me in the interim. [facility]
[2017-03-08] MEDS ORDERED: METOPROLOL TARTRATE 1 MG/ML VIAL IV STA (04:13)
[2017-03-08] MEDS ORDERED: METOPROLOL TARTRATE 1 MG/ML VIAL ONE (04:15)
[2017-03-08] MEDS: EPTIFIBATIDE INJ 75 MG PREMIXED IV SCH (05:49)
[2017-03-08 06:09] LABS: COMPLETE YES; HEMATOCRIT 41.2 % (37-47); IG% 0.1 %; LYMPH % 13.5 %; LYMPH ABS # 0.92 K/uL (1.2-3.4); MEAN CORPUSCULAR HEMOGLOBIN 28.8 pg (25-34); MEAN PLATELET VOLUME 10.1 fL (7.4-10.4); MONO % 7.9 %; NEUT % 78.5 %; PLATELET COUNT 194 K/uL (130-400); RED BLOOD COUNT 4.58 M/uL (4.2-5.4)
[2017-03-08] MEDS: NITROGLYCERIN 0.4 MG SL PER TAB CHARGE SL PRN ×2 (06:26→06:39)
--- NOTE | 2017-03-08 06:48 | Clinical Documentation Query ---
Dr. PERALTA SLATYFORK : CLINICAL DOCUMENTATION QUERY Patient is an 86 year old female presenting with STEMI who underwent balloon angioplasty and aspiration thrombectomy in the LAD on 03/07. LV angiography identified findings consistent with an arteriovenous fistula. As appropriate and able, please clarify as optioned below as the level of severity associated with each diagnosis is not equivocal. In your clinical opinion is this patient being managed for: ( ) Distal LAD coronary arteriovenous fistula, acquired ( X ) Distal LAD coronary arteriovenous fistula, congenital ( ) Other explanation of clinical findings (Please Explain) ( ) Unable to determine (Please Define) ( ) Need to Discuss ( ) Not Agree The medical record reflects the following clinical findings, treatment, and risk factors. Clinical Indicators: As above Treatment: n/a Risk Factors:n/a Please clarify and document your clinical opinion in the progress notes and discharge summary. Terms such as "probable", "suspected", "likely", "questionable", "possible", or "still to be ruled out" are acceptable. IF IN AGREEMENT, YOU MUST DOCUMENT ABOVE DIAGNOSTIC STATEMENT IN DAILY PROGRESS NOTES AND DISCHARGE SUMMARY. This document is not part of the patient's record. Thank You, Charles Childers, RN [phone]
[2017-03-08 06:56] LABS: BUN/CREATININE RATIO 15.4 (10-20); CALCIUM 8.6 mg/dl (8.5-10.1); CREATININE 0.99 mg/dl (0.60-1.20); MAGNESIUM 2.2 mg/dl (1.8-2.4); POTASSIUM 4.4 mmol/L (3.5-5.1)
[2017-03-08 07:07] LABS: ESTIMATED AVERAGE GLUCOSE 108 mg/dl; HA1C FLAG Normal (Normal)
[2017-03-08 07:07] LABS: PHOSPHORUS 4.4 mg/dl (2.5-4.9); THYROID STIMULATING HORMONE 0.938 uIu/ml (0.300-4.500)
[2017-03-08] MEDS: LISINOPRIL 5 MG TAB PO SCH (07:40)
[2017-03-08] MEDS: METOPROLOL TARTRATE 25 MG TAB PO SCH ×2 (07:40→21:06)
[2017-03-08] MEDS: CLOPIDOGREL BISULFATE 75 MG TAB PO SCH (07:40)
[2017-03-08] MEDS: ASPIRIN 81 MG ECTAB PO SCH (07:40)
[2017-03-08] MEDS: ATORVASTATIN 40 MG TAB PO SCH (07:40)
[2017-03-08] MEDS: PANTOprazole SOD 40 MG TAB PO SCH (07:40)
[2017-03-08] MEDS: ALBUT/IPRATROP 3MG/0.5MG NEB 3 ML VIAL INH SCH ×4 (07:47→20:21)
--- NOTE | 2017-03-08 09:46 | DIAGNOSTIC IMAGING REPORT ---
CHEST ONE VIEW PORTABLE CLINICAL HISTORY: dyspnea COMPARISON STUDY: 03/07/2017 FINDINGS: The heart is enlarged. There are developing airspace opacities within the right upper lobe right lower lobe and left lower lobe. The findings likely represent pulmonary edema although a multifocal pneumonitis could appear similar. A small right pleural effusion is suspected. IMPRESSION: 1. Cardiomegaly, and developing bilateral pulmonary airspace opacities. The findings likely represent pulmonary edema although a multifocal pneumonitis could appear similar. Clinical and radiographic follow-up is recommended. Electronically signed by: Silvio Rayo M.D. 03/08/2017 9:44 AM Dictated Date/Time: 03/08/2017 9:43 AM
[2017-03-08] MEDS ORDERED: Integrelin infusion --> STOP ORDER ONE (11:00)
--- NOTE | 2017-03-08 14:40 | ECHOCARDIOGRAM REPORT ---
*NOTICE TO RECEIVING CONSTITUTION PARTY AGENCY This information is strictly Confidential and protected under [place] law. [place] law prohibits you from making any further disclosure of this information unless further disclosure is expressly permitted by the written consent of the person to whom it pertains or is authorized by law. A general authorization for the release of medical or other information is not sufficient for this purpose. Hospital accepts no responsibility if the information is made available to any other person, INCLUDING THE PATIENT. Interpretation Summary * Name: OVIDIO BRO Study Date: 03/08/2017 08:14 AM BP: 161/91 mmHg * Patient Location: .MSICU\S\E110\S\1 HR: 66 * : 1930 (M/d/yyyy) Gender: Female Height: 55 in * Age: 86 yrs Ethnicity: [place] Weight: 194 lb * Ordering Physician: Johnny Greer MD, [facility] * Performed By: Yun Singh * * Reason For Study: AMI * BSA: 1.7 m2 * -- Conclusions -- * 1. Normal LV size. Mild concentric LVH with sigmoid septum. * 2. Normal LV systolic function. LVEF 50-55%. Apical segments are akinetic. Grade II diastolic dysfunction. * 3. Mildly dilated RV with normal RV function. * 4. Mildly dilated LA, moderately dilated RA. * 5. Mild to moderate aortic regurgitation. Mild aortic sclerosis without stenosis. * 6. Mild mitral regurgitation. * 7. Mild to moderate tricuspid regurgitation. * 8. Moderate to severe pulmonary hypertension. Est PASP 60-65. Elevated RA pressure (Est 15 mmHg). * 9. Compared with prior study on 06/08/2011: Apical akinesis is new. Procedure Details * A complete two-dimensional transthoracic echocardiogram was performed (2D, M-mode, Doppler and color flow Doppler). Left Ventricle * The left ventricle is grossly normal size. * There is no thrombus. * The basal septum is thickened and angulated consistent with sigmoid septum. * There is mild concentric left ventricular hypertrophy. * Ejection Fraction = 50-55%. * There is apical akinesis. Right Ventricle * The right ventricle is mildly dilated. * The right ventricular systolic function is normal as assessed by tricuspid annular plane systolic excursion (TAPSE) (normal >1.5 cm). Atria * The left atrium is mildly dilated. * The right atrium is moderately dilated. * No ASD detected; PFO is not assessed. Mitral Valve * The mitral valve leaflets appear thickened, but open well. * There is no mitral valve stenosis. * There is mild mitral regurgitation. Tricuspid Valve * The tricuspid valve is not well visualized, but is grossly normal. * There is no tricuspid stenosis. * There is mild to moderate tricuspid regurgitation. * Right ventricular systolic pressure is elevated at >60mmHg. Aortic Valve * Aortic valve sclerosis mild, without significant aortic valvular stenosis. * The aortic valve is trileaflet. * Aortic stenosis is absent. * Mild to moderate aortic regurgitation. Pulmonic Valve * The pulmonary valve is inadequately visualized, but the Doppler data is adequate for interpretation. * Pulmonic stenosis is absent. * Trace pulmonic valvular regurgitation. Great Vessels * Borderline aortic root dilatation. Pericardium/Pleural * There is no pericardial effusion. Great Vessels * The inferior vena cava is severely dilated. * Dilated inferior vena cava with reduced collapsability with sniff indicates an elevated right atrial pressure of 15 mmHg Left Ventricular Diastolic Function * Diastolic dysfunction, Grade II (pseudonormalization pattern). MMode 2D Measurements and Calculations IVSd 1.6 cm IVSs 1.8 cm LVIDd 4.0 cm LVIDs 2.9 cm LVPWd 0.85 cm LVPWs 1.9 cm IVS/LVPW 1.9 FS 29.2 % EDV(Teich) 71.5 ml ESV(Teich) 31.1 ml EF(Teich) 56.5 % EDV(cubed) 65.7 ml ESV(cubed) 23.3 ml EF(cubed) 64.5 % % IVS thick 10.1 % % LVPW thick 122.9 % LV mass(C)d 172.3 grams LV mass(C)dI 99.6 grams/m\S\2 LV mass(C)s 211.1 grams LV mass(C)sI 122.0 grams/m\S\2 CO(Teich) 3.1 l/min CI(Teich) 1.8 l/min/m\S\2 SV(Teich) 40.4 ml SI(Teich) 23.4 ml/m\S\2 CO(cubed) 3.2 l/min CI(cubed) 1.9 l/min/m\S\2 SV(cubed) 42.4 ml SI(cubed) 24.5 ml/m\S\2 ACS 1.1 cm LA dimension 4.2 cm asc Aorta Diam 4.1 cm LVOT diam 2.1 cm LVOT area 3.5 cm\S\2 LVAd ap4 23.3 cm\S\2 LVLd ap4 7.7 cm EDV(MOD-sp4) 58.4 ml LVAs ap4 14.5 cm\S\2 LVLs ap4 7.0 cm ESV(MOD-sp4) 24.7 ml EF(MOD-sp4) 57.7 % LVAd ap2 22.6 cm\S\2 LVLd ap2 7.6 cm EDV(MOD-sp2) 54.8 ml LVAs ap2 15.1 cm\S\2 LVLs ap2 7.2 cm ESV(MOD-sp2) 27.1 ml EF(MOD-sp2) 50.5 % CO(MOD-sp4) 2.6 l/min CI(MOD-sp4) 1.5 l/min/m\S\2 SV(MOD-sp4) 33.7 ml SI(MOD-sp4) 19.5 ml/m\S\2 CO(MOD-sp2) 2.1 l/min CI(MOD-sp2) 1.2 l/min/m\S\2 SV(MOD-sp2) 27.7 ml SI(MOD-sp2) 16.0 ml/m\S\2 Doppler Measurements and Calculations MV E max jose 72.5 cm/sec MV A max jose 32.6 cm/sec MV E/A 2.2 MV dec time 0.20 sec Ao V2 max 129.4 cm/sec Ao max PG 6.7 mmHg Ao max PG (full) 4.0 mmHg [place](V,A) 2.2 cm\S\2 [place](V,D) 2.2 cm\S\2 AI max jose 251.1 cm/sec AI max PG 25.2 mmHg AI dec slope 212.4 cm/sec\S\2 AI P1/2t 346.4 msec LV V1 max PG 2.7 mmHg LV V1 max 82.3 cm/sec PA V2 max 62.6 cm/sec PA max PG 1.6 mmHg PI end-d jose 177.8 cm/sec TR max jose 318.3 cm/sec
--- NOTE | 2017-03-08 15:33 | Cardiology Follow-Up ---
Subjective Subjective Date of Service: March 08, 2017. Pt evaluation today including: conversation w/ patient, physical exam, chart review, lab review, review of studies, conversation w/ [employer] product consultant, review of inpatient medication list Additional Details: Mild shortness of breath this AM, more so while lying flat. No chest pain overnight. No other new complaints. Tele reviewed -- rare PVCs, brief NSVT <5 beats. Problem List Medical Problems: (1) Acute myocardial infarction of apical-lateral wall Status: Acute (2) Chest pain Status: Acute (3) RBBB Status: Acute Review of Systems Constitutional: No chills, No fever Respiratory: + shortness of breath, + wheezing Cardiac: No chest pain, No edema Abdomen: No nausea, No pain Heme: + abnormal bleeding/bruising Endo: + fatigue Skin: No rash Objective Vital Signs Last Vital Signs Documentation Date Time Temp Pulse Resp B/P Pulse Ox O2 Delivery O2 Flow Rate FiO2 03/08/17 12:24 80 22 97 Nasal Cannula 2.0 03/08/17 10:25 138/83 03/08/17 08:00 36.6 Physical Exam: General Appearance: no apparent distress ENT: hearing grossly normal Neck: + JVD (~10) Respiratory/Chest: + crackles (at bases), + wheezing (few scattered) Cardiovascular: regular rate, rhythm, + systolic murmur (2/6 systolic at rusb) Abdomen: normal bowel sounds, non tender, soft Extremities: no pedal edema, + pertinent finding (right radial artery access site with ecchymosis around entry site. Intact distal pulses. intact sensation.) Neurologic/Psychiatric: no motor/sensory deficits, alert, normal mood/affect Skin: normal color, warm/dry Assessment and Plan 1. Anterior STEMI-- post procedure day 1 s/p PTCA to mid to distal LAD 2. Acute diastolic heart failure -- mild pulmonary, systemic venous congestion on exam 3. Aortic regurgitation 4. Pulmonary hypertension Chest pain free. Overall LV function preserved. Troponin peaked. Dyspnea/orthopnea this AM with congestion on exam/echo. -- Recommend 40 IV lasix now -- goal 500-1L negative today -- Integrilin infusion to finish this afternoon. -- continue DAPT with ASA/Clopidogrel for 1 year. -- Continue high-intensity statin, metoprolol, lisinopril -- If respiratory status stable -- can be transferred to telemetry later today. Will continue to follow. Medications: Current Inpatient Medications Medications (Trade) Dose Ordered Sig/Reji Route Start Time Stop Time Status Last Admin Dose Admin Nitroglycerin (Nitrostat Tab) 0.4 mg UD PRN SL 03/07/17 18:00 04/06/17 17:59 03/08/17 06:39 0.4 MG Atropine Sulfate (Atropine Sulfate 0.1MG/Ml Inj) 0.5 mg ONE PRN IV 03/07/17 18:00 04/06/17 17:59 Ondansetron HCl 4 mg 4 mg Q6H PRN IV 03/07/17 18:00 04/06/17 17:59 Ondansetron HCl/ Dextrose (Zofran Inj/D5 50ml) 54 ml @ 200 mls/hr Q6H PRN IV 03/07/17 18:00 04/06/17 17:59 Aspirin (Ecotrin Tab) 81 mg QAM PO 03/08/17 09:00 04/07/17 08:59 03/08/17 07:40 81 MG Clopidogrel Bisulfate (plAVix TAB) 75 mg QAM PO 03/08/17 09:00 04/07/17 08:59 03/08/17 07:40 75 MG Atorvastatin Calcium (Lipitor Tab) 80 mg QAM PO 03/08/17 09:00 04/07/17 08:59 03/08/17 07:40 80 MG Metoprolol Tartrate (Lopressor Tab) 25 mg Q12 PO 03/07/17 21:00 04/06/17 20:59 03/08/17 07:40 25 MG Acetaminophen 650 mg 650 mg Q4H PRN PO 03/07/17 18:00 04/06/17 17:59 Lorazepam/Syringe (Ativan Inj/ Syringe) 1 ml @ 1 mls/min Q6H PRN IV 03/07/17 18:00 04/06/17 17:59 Lisinopril (Zestril Tab) 5 mg QAM PO 03/08/17 09:00 04/07/17 08:59 03/08/17 07:40 5 MG Pantoprazole Sodium (Protonix Tab) 40 mg QAM PO 03/08/17 09:00 04/07/17 08:59 03/08/17 07:40 40 MG Albuterol/ Ipratropium (Duoneb) 3 ml QIDR INH 03/07/17 20:00 04/06/17 19:59 03/08/17 11:23 3 ML Lab Results: 03/08/17 05:55 Red Blood Count 4.58, Mean Corpuscular Volume 90.0, Mean Corpuscular Hemoglobin 28.8, Mean Corpuscular Hemoglobin Concent 32.0, Mean Platelet Volume 10.1, Neutrophils (%) (Auto) 78.5, Lymphocytes (%) (Auto) 13.5, Monocytes (%) (Auto) 7.9, Eosinophils (%) (Auto) 0.0, Basophils (%) (Auto) 0.0, Neutrophils # (Auto) 5.33, Lymphocytes # (Auto) 0.92, Monocytes # (Auto) 0.54, Eosinophils # (Auto) 0.00, Basophils # (Auto) 0.00 03/08/17 05:55 Test 03/07/17 15:45 03/07/17 16:04 03/07/17 16:06 03/07/17 17:23 Prothrombin Time 11.5 SECONDS (9.0-12.0) Prothromb Time International Ratio 1.1 (0.9-1.1) Activated Partial Thromboplast Time 24.9 SECONDS (21.0-31.0) Partial Thromboplastin Ratio 1.0 Total Bilirubin 1.3 mg/dl (0.2-1) Direct Bilirubin 0.3 mg/dl (0-0.2) Aspartate Amino Transf (AST/SGOT) 50 U/L (15-37) Alanine Aminotransferase (ALT/SGPT) 42 U/L (12-78) Alkaline Phosphatase 110 U/L (45-117) Total Creatine Kinase 170 U/L (26-192) Creatine Kinase MB 4.1 ng/ml (0.5-3.6) Creatine Kinase MB Ratio 2.4 (0-3.0) Total Protein 7.8 gm/dl (6.4-8.2) Albumin 3.7 gm/dl (3.4-5.0) Lipase 109 U/L (73-393) Bedside Hemoglobin 13.9 g/dl (12.0-16.0) Bedside Hematocrit 41 % (37-47) Bedside Sodium 144 mEq/L (135-144) Bedside Potassium 4.1 mEq/L (3.3-5.0) Bedside Chloride 103 mEq/L (101-112) Bedside Total CO2 28 mEq/l (24-31) Bedside Blood Urea Nitrogen 16 mg/dl (7-18) Bedside Creatinine 0.9 mg/dl (0.6-1.3) Bedside Glucose (other) 104 mg/dl (70-99) Bedside Ionized Calcium (Mariza) 1.12 mmol/l (1.12-1.32) Bedside Troponin I 0.270 ng/ml (0-0.045) Kaolin Activated Coagulation Time 224 SECONDS (94-140) Test 03/07/17 19:06 03/08/17 05:55 03/08/17 06:25 03/08/17 12:10 Estimated Average Glucose 108 mg/dl Hemoglobin A1c 5.4 % (4.5-5.6) Triglycerides Level 49 mg/dl (0-150) Cholesterol Level 166 mg/dl (0-200) HDL Cholesterol 68 mg/dl LDL Cholesterol Direct 84 mg/dl LDL Cholesterol, Calculated mg/dl VLDL Cholesterol, Calculated 10 mg/dl Cholesterol/HDL Ratio 2.4 White Blood Count 6.80 K/uL (4.8-10.8) Red Blood Count 4.58 M/uL (4.2-5.4) Hemoglobin 13.2 g/dL (12.0-16.0) Hematocrit 41.2 % (37-47) Mean Corpuscular Volume 90.0 fL (80-100) Mean Corpuscular Hemoglobin 28.8 pg (25-34) Mean Corpuscular Hemoglobin Concent 32.0 g/dl (32-36) Platelet Count 194 K/uL (130-400) Mean Platelet Volume 10.1 fL (7.4-10.4) Neutrophils (%) (Auto) 78.5 % Lymphocytes (%) (Auto) 13.5 % Monocytes (%) (Auto) 7.9 % Eosinophils (%) (Auto) 0.0 % Basophils (%) (Auto) 0.0 % Neutrophils # (Auto) 5.33 K/uL (1.4-6.5) Lymphocytes # (Auto) 0.92 K/uL (1.2-3.4) Monocytes # (Auto) 0.54 K/uL (0.11-0.59) Eosinophils # (Auto) 0.00 K/uL (0-0.5) Basophils # (Auto) 0.00 K/uL (0-0.2) RDW Standard Deviation 47.6 fL (36.4-46.3) RDW Coefficient of Variation 14.5 % (11.5-14.5) Immature Granulocyte % (Auto) 0.1 % Immature Granulocyte # (Auto) 0.01 K/uL (0.00-0.02) Anion Gap 8.0 mmol/L (3-11) Est Creatinine Clear Calc Drug Dose 42.4 ml/min Estimated GFR () 59.0 Estimated GFR (Non- 50.9 BUN/Creatinine Ratio 15.4 (10-20) Calcium Level 8.6 mg/dl (8.5-10.1) Phosphorus Level 4.4 mg/dl (2.5-4.9) Magnesium Level 2.2 mg/dl (1.8-2.4) Thyroid Stimulating Hormone (TSH) 0.938 uIu/ml (0.300-4.500) Bedside Glucose 130 mg/dl (70-90) Troponin I 54.200 ng/ml (0-0.045) Date/Time Source Procedure Growth Status 03/07/17 21:00 Nasal MRSA DNA Surveillance Screen - Final Specimen Negative for MRSA by DNA Probe Complete
[2017-03-08] MEDS ORDERED: FUROSEMIDE INJ 40 MG in SYRINGE 0 ML IV ONE (17:30)
--- NOTE | 2017-03-08 22:06 | Progress Note ---
Subjective Date of Service: March 08, 2017. Subjective Pt evaluation today including: conversation w/ patient, conversation w/ family (daughter at bedside), physical exam, chart review, lab review, review of studies (echo, cath report), conversation w/ speech correction consultant (cardiology (Dr. Pal)) , review of inpatient medication list Pain: no chest pain PO Intake: poor today Voiding: no incontinence tele stable overnight without any dysrhythmia she has not had any chest pain but reports ongoing nausea & lack of appetite +orthopnea with dyspnea some cough Problem List Medical Problems: (1) Acute myocardial infarction of apical-lateral wall Status: Acute (2) Chest pain Status: Acute (3) RBBB Status: Acute Review of Systems Constitutional: No fever Respiratory: + dyspnea at rest, + dyspnea on exertion Cardiac: No chest pain Abdomen: + nausea, No pain, No vomiting Objective Vital Signs Date Time Temp Pulse Resp B/P Pulse Ox O2 Delivery O2 Flow Rate FiO2 03/08/17 20:27 80 16 96 Nasal Cannula 2.0 03/08/17 20:00 95 Nasal Cannula 2.0 03/08/17 19:13 36.6 87 16 151/81 95 2.0 03/08/17 16:00 87 24 147/87 97 Nasal Cannula 2.0 03/08/17 16:00 100 Nasal Cannula 2.0 03/08/17 15:35 76 16 97 Nasal Cannula 2.0 03/08/17 14:39 36.6 72 18 138/86 98 Nasal Cannula 2.0 03/08/17 12:24 80 22 97 Nasal Cannula 2.0 03/08/17 12:07 98 Nasal Cannula 2.0 03/08/17 11:23 70 16 97 Nasal Cannula 2.0 03/08/17 10:25 71 18 138/83 99 Nasal Cannula 2.0 03/08/17 08:00 98 Nasal Cannula 2.0 03/08/17 08:00 36.6 76 20 139/88 98 Nasal Cannula 2.0 03/08/17 07:49 70 16 95 Room Air 03/08/17 06:55 71 146/93 03/08/17 06:35 72 153/92 03/08/17 06:00 36.6 69 20 176/98 98 Nasal Cannula 2.0 03/08/17 05:08 66 17 161/91 98 Nasal Cannula 2.0 03/08/17 04:50 64 156/95 03/08/17 04:19 74 170/98 03/08/17 04:00 36.5 74 17 170/98 96 Nasal Cannula 2.0 03/08/17 04:00 99 Nasal Cannula 2.0 03/08/17 03:00 75 17 155/87 96 Nasal Cannula 2.0 03/08/17 02:00 75 18 160/88 98 Nasal Cannula 2.0 03/08/17 01:00 78 18 145/84 97 Nasal Cannula 2.0 03/08/17 00:00 97 Nasal Cannula 2.0 03/08/17 00:00 36.6 74 25 150/75 97 Nasal Cannula 2.0 03/07/17 23:00 76 14 130/89 97 03/07/17 22:30 77 16 149/80 98 Physical Exam General Appearance: no apparent distress ENT: pharynx normal Neck: + JVD (to the jaw) Respiratory/Chest: no respiratory distress, no accessory muscle use, + crackles (1/2 [address] up back b/l), + wheezing (end-exp) Cardiovascular: regular rate, rhythm, no gallop, no murmur Abdomen: normal bowel sounds, non tender, soft, no organomegaly Extremities: no pedal edema, + pertinent finding (right wrist w/o hematoma) Neurologic/Psychiatric: alert, oriented x 3 Laboratory Results Last 24 Hours Test 03/08/17 05:55 03/08/17 06:25 03/08/17 09:18 03/08/17 12:10 White Blood Count 6.80 K/uL Red Blood Count 4.58 M/uL Hemoglobin 13.2 g/dL Hematocrit 41.2 % Mean Corpuscular Volume 90.0 fL Mean Corpuscular Hemoglobin 28.8 pg Mean Corpuscular Hemoglobin Concent 32.0 g/dl Platelet Count 194 K/uL Mean Platelet Volume 10.1 fL Neutrophils (%) (Auto) 78.5 % Lymphocytes (%) (Auto) 13.5 % Monocytes (%) (Auto) 7.9 % Eosinophils (%) (Auto) 0.0 % Basophils (%) (Auto) 0.0 % Neutrophils # (Auto) 5.33 K/uL Lymphocytes # (Auto) 0.92 K/uL Monocytes # (Auto) 0.54 K/uL Eosinophils # (Auto) 0.00 K/uL Basophils # (Auto) 0.00 K/uL RDW Standard Deviation 47.6 fL RDW Coefficient of Variation 14.5 % Immature Granulocyte % (Auto) 0.1 % Immature Granulocyte # (Auto) 0.01 K/uL Sodium Level 139 mmol/L Potassium Level 4.4 mmol/L Chloride Level 104 mmol/L Carbon Dioxide Level 27 mmol/L Anion Gap 8.0 mmol/L Blood Urea Nitrogen 15 mg/dl Creatinine 0.99 mg/dl Est Creatinine Clear Calc Drug Dose 42.4 ml/min Estimated GFR () 59.0 Estimated GFR (Non- 50.9 BUN/Creatinine Ratio 15.4 Random Glucose 119 mg/dl Calcium Level 8.6 mg/dl Phosphorus Level 4.4 mg/dl Magnesium Level 2.2 mg/dl Thyroid Stimulating Hormone (TSH) 0.938 uIu/ml Bedside Glucose 130 mg/dl Troponin I 62.700 ng/ml 54.200 ng/ml Assessment and Plan 86yo female - 1. CAD, s/p STEMI due to totally occluded LAD, s/p angioplasty, atherectomy, etc by Dr. Greer. Cont asa, plavix, beta umu, JOS, statin, nitrates prn. Troponin has peaked and has trended down. 2. acute systolic/diastolic CHF - 2nd to STEMI. Lasix 40mg IV x 1 now. Follow UOP. Restrict fluids/salt. 3. abnormal LFTs - could be 2nd to hepatic congestion from acute CHF. Repeat LFTs am for normalization. 4. nausea/dyspepsia - could be 2nd to #1, but cannot rule out GERD/gastritis. Cont PPI Anti-emetics prn 5. DVT proph - start heparin SC in the AM. 6. wheezing - likely due to pulmonary edema; continue nebs. 7. FEN - recheck BMP and mag in am. 8. code status - full code at this time. 9. CKD stage 3 - creatinine stable at this time. BMP in am. ok to move to telemetry unit Continued [facility] stay due to: multiple IV medications needed, other (acute [place], acute CHF) Discharge planning: home
[2017-03-09] VITALS (13 sets, daily range): BP systolic 109–148; BP diastolic 64–88; PULSE 65–88; TEMP 36.6–37.2; O2SAT 90–99
[2017-03-09 06:29] LABS: BASO % 0.1 %; BASO ABS # 0.01 K/uL (0-0.2); COMPLETE YES; HEMATOCRIT 38.4 % (37-47); IG% 0.2 %; LYMPH % 8.8 %; MEAN CELL VOLUME 89.5 fL (80-100); MEAN CORPUSCULAR HEMOGLOBIN 29.4 pg (25-34); MEAN CORPUSCULAR HGB CONC 32.8 g/dl (32-36); MEAN PLATELET VOLUME 10.6 fL (7.4-10.4); NEUT % 80.9 %; PLATELET COUNT 184 K/uL (130-400); RED BLOOD COUNT 4.29 M/uL (4.2-5.4); WHITE BLOOD COUNT 9.04 K/uL (4.8-10.8)
[2017-03-09 06:56] LABS: BUN/CREATININE RATIO 20.3 (10-20); CREATININE 1.1 mg/dl (0.60-1.20); MAGNESIUM 2.3 mg/dl (1.8-2.4); POTASSIUM 3.7 mmol/L (3.5-5.1)
[2017-03-09] MEDS: ALBUT/IPRATROP 3MG/0.5MG NEB 3 ML VIAL INH SCH ×4 (07:20→20:15)
[2017-03-09 07:27] LABS: CALCIUM 8.9 mg/dl (8.5-10.1)
[2017-03-09] MEDS: ASPIRIN 81 MG ECTAB PO SCH (08:21)
[2017-03-09] MEDS: ATORVASTATIN 40 MG TAB PO SCH (08:21)
[2017-03-09] MEDS: METOPROLOL TARTRATE 25 MG TAB PO SCH ×2 (08:21→20:52)
[2017-03-09] MEDS: CLOPIDOGREL BISULFATE 75 MG TAB PO SCH (08:21)
[2017-03-09] MEDS: LISINOPRIL 5 MG TAB PO SCH (08:22)
[2017-03-09] MEDS: PANTOprazole SOD 40 MG TAB PO SCH (08:22)
[2017-03-09] MEDS ORDERED: COUGH DROP (SUGAR FREE) LOZ 24 LOZ/1 BOX ONE (08:56)
[2017-03-09] MEDS ORDERED: NURSING VERBAL MED ORDER ONE (09:15)
[2017-03-09] MEDS ORDERED: COUGH DROP (SUGAR FREE) LOZ 24 LOZ/1 BOX PO PRN (09:30)
--- NOTE | 2017-03-09 13:45 | Medical Student: [facility] ---
Med Student Progress Note Date of Service March 09, 2017. Subjective Pt evaluation today including: conversation w/ patient, physical exam, chart review, lab review, review of studies Pain: controlled with current pain meds PO Intake: full diet Voiding: no voiding problems No acute events overnight. Patient reports that her nausea has improved since yesterday. She denies any chest pain or shortness of breath. Her only question was regarding what she can do to help prevent further cardiac events once she leaves the hospital. No other complaints. Review of Systems Constitutional: No chills, No fever Respiratory: No cough, No shortness of breath Cardiac: No chest pain Abdomen: + nausea (mild, improved), No pain Objective Vital Signs Date Time Temp Pulse Resp B/P Pulse Ox O2 Delivery O2 Flow Rate FiO2 03/09/17 12:00 Nasal Cannula 2.0 03/09/17 11:18 36.9 65 20 121/78 99 2.0 03/09/17 08:00 Nasal Cannula 2.0 03/09/17 07:22 79 16 98 Nasal Cannula 2.0 03/09/17 07:18 37.0 75 20 136/82 98 2.0 03/09/17 04:00 95 Nasal Cannula 3.0 03/09/17 03:57 36.9 79 20 148/88 95 Nasal Cannula 2.0 03/09/17 00:00 36.6 86 133/64 95 Nasal Cannula 3.0 03/09/17 00:00 95 Nasal Cannula 3.0 03/08/17 20:27 80 16 96 Nasal Cannula 2.0 03/08/17 20:00 95 Nasal Cannula 2.0 03/08/17 19:13 36.6 87 16 151/81 95 2.0 03/08/17 16:00 87 24 147/87 97 Nasal Cannula 2.0 03/08/17 16:00 100 Nasal Cannula 2.0 03/08/17 15:35 76 16 97 Nasal Cannula 2.0 03/08/17 14:39 36.6 72 18 138/86 98 Nasal Cannula 2.0 Physical Exam General Appearance: WD/WN, no apparent distress ENT: hearing grossly normal, pharynx normal Neck: supple, + JVD Respiratory/Chest: chest non-tender, normal breath sounds, no respiratory distress, + crackles (mild bibasilar crackles) Cardiovascular: regular rate, rhythm, no edema, no gallop, no murmur Abdomen: normal bowel sounds, non tender, soft Extremities: non-tender, no pedal edema Neurologic/Psychiatric: alert, oriented x 3 Skin: normal color, no rash Laboratory Results Last 24 Hours Test 03/09/17 05:55 White Blood Count 9.04 K/uL Red Blood Count 4.29 M/uL Hemoglobin 12.6 g/dL Hematocrit 38.4 % Mean Corpuscular Volume 89.5 fL Mean Corpuscular Hemoglobin 29.4 pg Mean Corpuscular Hemoglobin Concent 32.8 g/dl Platelet Count 184 K/uL Mean Platelet Volume 10.6 fL Neutrophils (%) (Auto) 80.9 % Lymphocytes (%) (Auto) 8.8 % Monocytes (%) (Auto) 10.0 % Eosinophils (%) (Auto) 0.0 % Basophils (%) (Auto) 0.1 % Neutrophils # (Auto) 7.31 K/uL Lymphocytes # (Auto) 0.80 K/uL Monocytes # (Auto) 0.90 K/uL Eosinophils # (Auto) 0.00 K/uL Basophils # (Auto) 0.01 K/uL RDW Standard Deviation 48.2 fL RDW Coefficient of Variation 14.8 % Immature Granulocyte % (Auto) 0.2 % Immature Granulocyte # (Auto) 0.02 K/uL Sodium Level 137 mmol/L Potassium Level 3.7 mmol/L Chloride Level 100 mmol/L Carbon Dioxide Level 28 mmol/L Anion Gap 9.0 mmol/L Blood Urea Nitrogen 22 mg/dl Creatinine 1.10 mg/dl Est Creatinine Clear Calc Drug Dose 38.1 ml/min Estimated GFR () 51.9 Estimated GFR (Non- 44.8 BUN/Creatinine Ratio 20.3 Random Glucose 129 mg/dl Calcium Level 8.9 mg/dl Magnesium Level 2.3 mg/dl Total Bilirubin 1.7 mg/dl Direct Bilirubin 0.3 mg/dl Aspartate Amino Transf (AST/SGOT) 204 U/L Alanine Aminotransferase (ALT/SGPT) 57 U/L Alkaline Phosphatase 86 U/L Total Protein 6.8 gm/dl Albumin 3.3 gm/dl Medications Current Inpatient Medications Medications (Trade) Dose Ordered Sig/Reji Route Start Time Stop Time Status Last Admin Dose Admin Nitroglycerin (Nitrostat Tab) 0.4 mg UD PRN SL 03/07/17 18:00 04/06/17 17:59 03/08/17 06:39 0.4 MG Atropine Sulfate (Atropine Sulfate 0.1MG/Ml Inj) 0.5 mg ONE PRN IV 03/07/17 18:00 04/06/17 17:59 Ondansetron HCl 4 mg 4 mg Q6H PRN IV 03/07/17 18:00 04/06/17 17:59 03/08/17 23:40 4 MG Ondansetron HCl/ Dextrose (Zofran Inj/D5 50ml) 54 ml @ 200 mls/hr Q6H PRN IV 03/07/17 18:00 04/06/17 17:59 Aspirin (Ecotrin Tab) 81 mg QAM PO 03/08/17 09:00 04/07/17 08:59 03/09/17 08:21 81 MG Clopidogrel Bisulfate (plAVix TAB) 75 mg QAM PO 03/08/17 09:00 04/07/17 08:59 03/09/17 08:21 75 MG Atorvastatin Calcium (Lipitor Tab) 80 mg QAM PO 03/08/17 09:00 04/07/17 08:59 03/09/17 08:21 80 MG Metoprolol Tartrate (Lopressor Tab) 25 mg Q12 PO 03/07/17 21:00 04/06/17 20:59 03/09/17 08:21 25 MG Acetaminophen (Tylenol Tab) 650 mg Q4H PRN PO 03/07/17 18:00 04/06/17 17:59 Lisinopril (Zestril Tab) 5 mg QAM PO 03/08/17 09:00 04/07/17 08:59 03/09/17 08:22 5 MG Pantoprazole Sodium (Protonix Tab) 40 mg QAM PO 03/08/17 09:00 04/07/17 08:59 03/09/17 08:22 40 MG Albuterol/ Ipratropium (Duoneb) 3 ml QIDR INH 03/07/17 20:00 04/06/17 19:59 03/09/17 07:20 3 ML Menthol (Nice Jayme) 1 jayme PRN PRN PO 03/09/17 09:30 04/08/17 09:29 03/09/17 10:14 1 JAYME Assessment and Plan Problems Acute myocardial infarction of apical-lateral wall Assessment and Plan: This is an 86 yo female who presented two days ago with an acute STEMI s/p catheterization with thrombus evacuation. 1. STEMI: -Recovering well. Has no signs of additional complications at this time -Continue current cardiac meds -ASA 81 mg po daily -Clopidogrel 75 mg po daily -Atorvastatin 80 mg po daily -Metoprolol tartrate 25 mg po q12h -Lisinopril 5 mg po daily -Nitroglycerin .4 mg sublingual prn -Monitor on telemetry -May attempt to wean oxygen as tolerated -Tylenol prn for pain 2. GI prophylaxis: -Pantoprazole 40 mg po daily 3. DVT prophylaxis: -Dual antiplatelet therapy and SCDs with compression stockings. 4. Dispo/discharge: -Continue to monitor at least one more day. -PT/OT recs appreciated. -Discharge planning dependent on functional status. Continued [facility] stay due to: multiple IV medications needed, other (acute [place], acute CHF) Discharge planning: home
--- NOTE | 2017-03-09 14:20 | Cardiology Follow-Up ---
Subjective Subjective Date of Service: March 09, 2017. Pt evaluation today including: conversation w/ patient, physical exam, chart review, lab review, review of studies, review of inpatient medication list Additional Details: No chest pain. Breathing somewhat improved. Mild epigastric discomfort relieved with belching. Decreased appetite. Problem List Medical Problems: (1) Acute myocardial infarction of apical-lateral wall Status: Acute (2) Chest pain Status: Acute (3) RBBB Status: Acute Review of Systems Constitutional: No chills, No fever Respiratory: No cough, No shortness of breath Cardiac: No chest pain Abdomen: + nausea (mild, improved), No pain Endo: + fatigue Skin: No rash Objective Vital Signs Last Vital Signs Documentation Date Time Temp Pulse Resp B/P Pulse Ox O2 Delivery O2 Flow Rate FiO2 03/09/17 12:00 Nasal Cannula 2.0 03/09/17 11:18 36.9 65 20 121/78 99 Physical Exam: General Appearance: no apparent distress ENT: hearing grossly normal, pharynx normal Neck: supple, + JVD Respiratory/Chest: chest non-tender, normal breath sounds, no respiratory distress, + crackles (mild bibasilar crackles) Cardiovascular: regular rate, rhythm, no edema, + JVD (8-9) Abdomen: normal bowel sounds, non tender, soft Extremities: non-tender, no pedal edema Neurologic/Psychiatric: alert, oriented x 3 Skin: normal color, no rash Assessment and Plan 1. Anterior STEMI-- post procedure day 2 s/p PTCA to mid to distal LAD 2. Acute diastolic heart failure -- improving congestion on exam. 3. Aortic regurgitation 4. Pulmonary hypertension Remains chest pain free. Improving congestion/respiratory status after IV lasix yesterday. Mild residual pulmonary congestion on exam today -- With improving respiratory status today will hold on additional lasix currently. Hold IV fluids. -- continue DAPT with ASA/Clopidogrel for 1 year. -- Continue high-intensity statin, metoprolol, lisinopril Will continue to follow. Possible discharge to home tomorrow. Continued [facility] stay due to: multiple IV medications needed, other (acute [place], acute CHF) Discharge planning: home Medications: Current Inpatient Medications Medications (Trade) Dose Ordered Sig/Reji Route Start Time Stop Time Status Last Admin Dose Admin Nitroglycerin (Nitrostat Tab) 0.4 mg UD PRN SL 03/07/17 18:00 04/06/17 17:59 03/08/17 06:39 0.4 MG Atropine Sulfate (Atropine Sulfate 0.1MG/Ml Inj) 0.5 mg ONE PRN IV 03/07/17 18:00 04/06/17 17:59 Ondansetron HCl 4 mg 4 mg Q6H PRN IV 03/07/17 18:00 04/06/17 17:59 03/08/17 23:40 4 MG Ondansetron HCl/ Dextrose (Zofran Inj/D5 50ml) 54 ml @ 200 mls/hr Q6H PRN IV 03/07/17 18:00 04/06/17 17:59 Aspirin (Ecotrin Tab) 81 mg QAM PO 03/08/17 09:00 04/07/17 08:59 03/09/17 08:21 81 MG Clopidogrel Bisulfate (plAVix TAB) 75 mg QAM PO 03/08/17 09:00 04/07/17 08:59 03/09/17 08:21 75 MG Atorvastatin Calcium (Lipitor Tab) 80 mg QAM PO 03/08/17 09:00 04/07/17 08:59 03/09/17 08:21 80 MG Metoprolol Tartrate (Lopressor Tab) 25 mg Q12 PO 03/07/17 21:00 04/06/17 20:59 03/09/17 08:21 25 MG Acetaminophen (Tylenol Tab) 650 mg Q4H PRN PO 03/07/17 18:00 04/06/17 17:59 Lisinopril (Zestril Tab) 5 mg QAM PO 03/08/17 09:00 04/07/17 08:59 03/09/17 08:22 5 MG Pantoprazole Sodium (Protonix Tab) 40 mg QAM PO 03/08/17 09:00 04/07/17 08:59 03/09/17 08:22 40 MG Albuterol/ Ipratropium (Duoneb) 3 ml QIDR INH 03/07/17 20:00 04/06/17 19:59 03/09/17 07:20 3 ML Menthol (Nice Jayme) 1 jayme PRN PRN PO 03/09/17 09:30 04/08/17 09:29 03/09/17 10:14 1 JAYME Lab Results: 03/09/17 05:55 Red Blood Count 4.29, Mean Corpuscular Volume 89.5, Mean Corpuscular Hemoglobin 29.4, Mean Corpuscular Hemoglobin Concent 32.8, Mean Platelet Volume 10.6, Neutrophils (%) (Auto) 80.9, Lymphocytes (%) (Auto) 8.8, Monocytes (%) (Auto) 10.0, Eosinophils (%) (Auto) 0.0, Basophils (%) (Auto) 0.1, Neutrophils # (Auto ) 7.31, Lymphocytes # (Auto) 0.80, Monocytes # (Auto) 0.90, Eosinophils # (Auto ) 0.00, Basophils # (Auto) 0.01 03/09/17 05:55 Test 03/09/17 05:55 White Blood Count 9.04 K/uL (4.8-10.8) Red Blood Count 4.29 M/uL (4.2-5.4) Hemoglobin 12.6 g/dL (12.0-16.0) Hematocrit 38.4 % (37-47) Mean Corpuscular Volume 89.5 fL (80-100) Mean Corpuscular Hemoglobin 29.4 pg (25-34) Mean Corpuscular Hemoglobin Concent 32.8 g/dl (32-36) Platelet Count 184 K/uL (130-400) Mean Platelet Volume 10.6 fL (7.4-10.4) Neutrophils (%) (Auto) 80.9 % Lymphocytes (%) (Auto) 8.8 % Monocytes (%) (Auto) 10.0 % Eosinophils (%) (Auto) 0.0 % Basophils (%) (Auto) 0.1 % Neutrophils # (Auto) 7.31 K/uL (1.4-6.5) Lymphocytes # (Auto) 0.80 K/uL (1.2-3.4) Monocytes # (Auto) 0.90 K/uL (0.11-0.59) Eosinophils # (Auto) 0.00 K/uL (0-0.5) Basophils # (Auto) 0.01 K/uL (0-0.2) RDW Standard Deviation 48.2 fL (36.4-46.3) RDW Coefficient of Variation 14.8 % (11.5-14.5) Immature Granulocyte % (Auto) 0.2 % Immature Granulocyte # (Auto) 0.02 K/uL (0.00-0.02) Anion Gap 9.0 mmol/L (3-11) Est Creatinine Clear Calc Drug Dose 38.1 ml/min Estimated GFR () 51.9 Estimated GFR (Non- 44.8 BUN/Creatinine Ratio 20.3 (10-20) Calcium Level 8.9 mg/dl (8.5-10.1) Magnesium Level 2.3 mg/dl (1.8-2.4) Total Bilirubin 1.7 mg/dl (0.2-1) Direct Bilirubin 0.3 mg/dl (0-0.2) Aspartate Amino Transf (AST/SGOT) 204 U/L (15-37) Alanine Aminotransferase (ALT/SGPT) 57 U/L (12-78) Alkaline Phosphatase 86 U/L (45-117) Total Protein 6.8 gm/dl (6.4-8.2) Albumin 3.3 gm/dl (3.4-5.0)
--- NOTE | 2017-03-09 15:33 | Hospitalist Progress Note ---
Hospitalist Progress Note Date of Service March 09, 2017. (Rosendo Red, DEISI) Subjective Pt evaluation today including: conversation w/ patient, physical exam, chart review, lab review, review of studies, review of inpatient medication list Pain: denies any pain PO Intake: appetite slightly better today Voiding: no voiding problems complaint of overall weakness no SOB, no CP, Constitutional: + fatigue, + weakness Respiratory: + shortness of breath Cardiovascular: No PND, No chest pain, No claudication, No edema, No orthopnea, No palpitations, No problem reported, No see HPI Abdomen: No GI bleeding, No constipation, No diarrhea, No nausea, No pain, No problem reported, No see HPI, No vomiting Musculoskeletal: No calf pain, No joint pain, No muscle pain, No problem reported, No see HPI, No swelling (Rosendo Red CRNP) Medications reviewed (Rosendo Red CRNP) Objective Vital Signs Date Time Temp Pulse Resp B/P Pulse Ox O2 Delivery O2 Flow Rate FiO2 03/09/17 12:00 Nasal Cannula 2.0 03/09/17 11:18 36.9 65 20 121/78 99 2.0 03/09/17 08:00 Nasal Cannula 2.0 03/09/17 07:22 79 16 98 Nasal Cannula 2.0 03/09/17 07:18 37.0 75 20 136/82 98 2.0 03/09/17 04:00 95 Nasal Cannula 3.0 03/09/17 03:57 36.9 79 20 148/88 95 Nasal Cannula 2.0 03/09/17 00:00 36.6 86 133/64 95 Nasal Cannula 3.0 03/09/17 00:00 95 Nasal Cannula 3.0 03/08/17 20:27 80 16 96 Nasal Cannula 2.0 03/08/17 20:00 95 Nasal Cannula 2.0 03/08/17 19:13 36.6 87 16 151/81 95 2.0 03/08/17 16:00 87 24 147/87 97 Nasal Cannula 2.0 03/08/17 16:00 100 Nasal Cannula 2.0 03/08/17 15:35 76 16 97 Nasal Cannula 2.0 03/08/17 14:39 36.6 72 18 138/86 98 Nasal Cannula 2.0 (Rosendo Red ., CLOTH WASHER) Physical Exam General Appearance: no apparent distress Neck: supple Respiratory/Chest: + crackles (few bases) Cardiovascular: regular rate, rhythm, no edema Abdomen: normal bowel sounds, non tender, soft Extremities: normal range of motion, normal inspection, + pedal edema (trace) (Rosendo Red ., CLOTH WASHER) Laboratory Results Last 24 Hours Test 03/09/17 05:55 White Blood Count 9.04 K/uL Red Blood Count 4.29 M/uL Hemoglobin 12.6 g/dL Hematocrit 38.4 % Mean Corpuscular Volume 89.5 fL Mean Corpuscular Hemoglobin 29.4 pg Mean Corpuscular Hemoglobin Concent 32.8 g/dl Platelet Count 184 K/uL Mean Platelet Volume 10.6 fL Neutrophils (%) (Auto) 80.9 % Lymphocytes (%) (Auto) 8.8 % Monocytes (%) (Auto) 10.0 % Eosinophils (%) (Auto) 0.0 % Basophils (%) (Auto) 0.1 % Neutrophils # (Auto) 7.31 K/uL Lymphocytes # (Auto) 0.80 K/uL Monocytes # (Auto) 0.90 K/uL Eosinophils # (Auto) 0.00 K/uL Basophils # (Auto) 0.01 K/uL RDW Standard Deviation 48.2 fL RDW Coefficient of Variation 14.8 % Immature Granulocyte % (Auto) 0.2 % Immature Granulocyte # (Auto) 0.02 K/uL Sodium Level 137 mmol/L Potassium Level 3.7 mmol/L Chloride Level 100 mmol/L Carbon Dioxide Level 28 mmol/L Anion Gap 9.0 mmol/L Blood Urea Nitrogen 22 mg/dl Creatinine 1.10 mg/dl Est Creatinine Clear Calc Drug Dose 38.1 ml/min Estimated GFR () 51.9 Estimated GFR (Non- 44.8 BUN/Creatinine Ratio 20.3 Random Glucose 129 mg/dl Calcium Level 8.9 mg/dl Magnesium Level 2.3 mg/dl Total Bilirubin 1.7 mg/dl Direct Bilirubin 0.3 mg/dl Aspartate Amino Transf (AST/SGOT) 204 U/L Alanine Aminotransferase (ALT/SGPT) 57 U/L Alkaline Phosphatase 86 U/L Total Protein 6.8 gm/dl Albumin 3.3 gm/dl ([place] CRNP) Assessment and Plan 1. CAD, s/p STEMI due to totally occluded LAD, s/p angioplasty, atherectomy, etc by Dr. Greer. Cont asa, plavix, beta umu, JOS, statin, nitrates prn. Troponin has peaked and has trended down. 2. acute systolic/diastolic CHF - 2nd to STEMI. had single dose of IV lasix last evening. will speak with cardiology about low dose daily ?? Follow UOP. Restrict fluids/salt. 3. abnormal LFTs - could be 2nd to hepatic congestion from acute CHF. check LFTs am 4. nausea/dyspepsia - GERD/gastritis. Cont PPI Anti-emetics prn 5. DVT proph - heparin SCD/TEDS 6. CKD stage 3 - creatinine stable at this time. BMP in am. 7. Weakness - get PT/OT involved. Question need for rehab vs home as early as tomorrow. Continued [facility] stay due to: inadequate po fluid intake, ambulation difficulties , multiple IV medications needed Discharge planning: home with home health, longterm facility (Rosendo Red CRNP) History Chart reviewed and agree with plan (Keysha Zurita MD)
[2017-03-10] VITALS (11 sets, daily range): BP systolic 109–135; BP diastolic 69–85; PULSE 62–97; TEMP 36.4–36.9; O2SAT 91–99
[2017-03-10 05:53] LABS: BASO % 0.1 %; BASO ABS # 0.01 K/uL (0-0.2); COMPLETE YES; HEMATOCRIT 35.9 % (37-47); IG% 0.3 %; LYMPH % 19.9 %; MEAN CORPUSCULAR HEMOGLOBIN 29.1 pg (25-34); MEAN CORPUSCULAR HGB CONC 32.3 g/dl (32-36); MEAN PLATELET VOLUME 10.2 fL (7.4-10.4); MONO % 11.4 %; NEUT % 68.3 %; PLATELET COUNT 176 K/uL (130-400); RED BLOOD COUNT 3.99 M/uL (4.2-5.4); WHITE BLOOD COUNT 7.54 K/uL (4.8-10.8)
[2017-03-10 06:40] LABS: BUN/CREATININE RATIO 24.1 (10-20); CALCIUM 8.4 mg/dl (8.5-10.1); CREATININE 1.2 mg/dl (0.60-1.20); MAGNESIUM 2.4 mg/dl (1.8-2.4); POTASSIUM 3.4 mmol/L (3.5-5.1)
[2017-03-10 06:43] LABS: ALB/GLOB RATIO 0.9 (0.9-2)
[2017-03-10] MEDS: ALBUT/IPRATROP 3MG/0.5MG NEB 3 ML VIAL INH SCH ×3 (07:32→15:41)
[2017-03-10] MEDS: ASPIRIN 81 MG ECTAB PO SCH (09:39)
[2017-03-10] MEDS: METOPROLOL TARTRATE 25 MG TAB PO SCH ×2 (09:39→20:24)
[2017-03-10] MEDS: ATORVASTATIN 40 MG TAB PO SCH (09:39)
[2017-03-10] MEDS: PANTOprazole SOD 40 MG TAB PO SCH (09:39)
[2017-03-10] MEDS: CLOPIDOGREL BISULFATE 75 MG TAB PO SCH (09:39)
[2017-03-10] MEDS: LISINOPRIL 5 MG TAB PO SCH (09:40)
--- NOTE | 2017-03-10 13:50 | Medical Student: [facility] ---
Med Student Progress Note Date of Service March 10, 2017. Subjective Pt evaluation today including: conversation w/ patient, physical exam, chart review, lab review, review of studies Pain: none reported PO Intake: full liquid Voiding: voiding difficulty (did not urinate overnight) no acute events overnight except for not urinating. denies chest pain or shortness of breath. has been feeling somewhat tired, but does not feel light headed. No complaints of nausea or indigestion today. No other complaints to report. Review of Systems Constitutional: + fatigue, No chills, No fever Respiratory: No cough, No sputum Cardiac: No chest pain, No orthopnea Abdomen: No nausea, No pain Objective Vital Signs Date Time Temp Pulse Resp B/P Pulse Ox O2 Delivery O2 Flow Rate FiO2 03/10/17 11:58 36.5 67 18 135/85 96 Nasal Cannula 3.0 03/10/17 11:21 64 16 98 Nasal Cannula 2.0 03/10/17 07:37 36.8 65 19 123/75 98 Nasal Cannula 3.0 03/10/17 07:32 97 16 91 Nasal Cannula 2.0 03/10/17 04:00 99 Nasal Cannula 3.0 03/10/17 03:21 36.4 66 20 123/81 99 Nasal Cannula 3.0 Humidified Oxygen 03/10/17 00:00 95 Nasal Cannula 3.0 03/09/17 23:11 37.2 80 18 109/71 95 Nasal Cannula 3.0 Humidified Oxygen 03/09/17 22:00 95 Room Air 03/09/17 20:54 85 121/74 03/09/17 20:15 88 16 92 Room Air 03/09/17 16:00 Room Air 03/09/17 15:37 36.9 84 18 121/76 94 Room Air 03/09/17 14:39 87 16 90 Room Air Physical Exam General Appearance: WD/WN, no apparent distress ENT: hearing grossly normal, pharynx normal Neck: supple, no JVD Respiratory/Chest: chest non-tender, no respiratory distress, + crackles (dry bibasilar crackles) Cardiovascular: regular rate, rhythm, no edema, no gallop, no murmur Abdomen: normal bowel sounds, non tender, soft Extremities: non-tender, no pedal edema Neurologic/Psychiatric: alert, oriented x 3 Skin: normal color, no rash Laboratory Results Last 24 Hours Test 5/12/17 05:40 White Blood Count 7.54 K/uL Red Blood Count 3.99 M/uL Hemoglobin 11.6 g/dL Hematocrit 35.9 % Mean Corpuscular Volume 90.0 fL Mean Corpuscular Hemoglobin 29.1 pg Mean Corpuscular Hemoglobin Concent 32.3 g/dl Platelet Count 176 K/uL Mean Platelet Volume 10.2 fL Neutrophils (%) (Auto) 68.3 % Lymphocytes (%) (Auto) 19.9 % Monocytes (%) (Auto) 11.4 % Eosinophils (%) (Auto) 0.0 % Basophils (%) (Auto) 0.1 % Neutrophils # (Auto) 5.15 K/uL Lymphocytes # (Auto) 1.50 K/uL Monocytes # (Auto) 0.86 K/uL Eosinophils # (Auto) 0.00 K/uL Basophils # (Auto) 0.01 K/uL RDW Standard Deviation 48.2 fL RDW Coefficient of Variation 14.7 % Immature Granulocyte % (Auto) 0.3 % Immature Granulocyte # (Auto) 0.02 K/uL Sodium Level 136 mmol/L Potassium Level 3.4 mmol/L Chloride Level 100 mmol/L Carbon Dioxide Level 30 mmol/L Anion Gap 6.0 mmol/L Blood Urea Nitrogen 29 mg/dl Creatinine 1.20 mg/dl Est Creatinine Clear Calc Drug Dose 34.9 ml/min Estimated GFR () 46.7 Estimated GFR (Non- 40.3 BUN/Creatinine Ratio 24.1 Random Glucose 95 mg/dl Calcium Level 8.4 mg/dl Magnesium Level 2.4 mg/dl Total Bilirubin 1.7 mg/dl Aspartate Amino Transf (AST/SGOT) 129 U/L Alanine Aminotransferase (ALT/SGPT) 43 U/L Alkaline Phosphatase 79 U/L Total Protein 6.3 gm/dl Albumin 2.9 gm/dl Globulin 3.4 gm/dl Albumin/Globulin Ratio 0.9 Medications Current Inpatient Medications Medications (Trade) Dose Ordered Sig/Reji Route Start Time Stop Time Status Last Admin Dose Admin Nitroglycerin (Nitrostat Tab) 0.4 mg UD PRN SL 03/07/17 18:00 04/06/17 17:59 03/08/17 06:39 0.4 MG Atropine Sulfate (Atropine Sulfate 0.1MG/Ml Inj) 0.5 mg ONE PRN IV 5/9/17 18:00 04/06/17 17:59 Ondansetron HCl 4 mg 4 mg Q6H PRN IV 03/07/17 18:00 04/06/17 17:59 03/08/17 23:40 4 MG Ondansetron HCl/ Dextrose (Zofran Inj/D5 50ml) 54 ml @ 200 mls/hr Q6H PRN IV 03/07/17 18:00 04/06/17 17:59 Aspirin (Ecotrin Tab) 81 mg QAM PO 03/08/17 09:00 04/07/17 08:59 03/10/17 09:39 81 MG Clopidogrel Bisulfate (plAVix TAB) 75 mg QAM PO 03/08/17 09:00 04/07/17 08:59 03/10/17 09:39 75 MG Atorvastatin Calcium (Lipitor Tab) 80 mg QAM PO 03/08/17 09:00 04/07/17 08:59 03/10/17 09:39 80 MG Metoprolol Tartrate (Lopressor Tab) 25 mg Q12 PO 03/07/17 21:00 04/06/17 20:59 03/10/17 09:39 25 MG Acetaminophen (Tylenol Tab) 650 mg Q4H PRN PO 03/07/17 18:00 04/06/17 17:59 Lisinopril (Zestril Tab) 5 mg QAM PO 03/08/17 09:00 04/07/17 08:59 03/10/17 09:40 5 MG Pantoprazole Sodium (Protonix Tab) 40 mg QAM PO 03/08/17 09:00 04/07/17 08:59 03/10/17 09:39 40 MG Albuterol/ Ipratropium (Duoneb) 3 ml QIDR INH 03/07/17 20:00 04/06/17 19:59 03/10/17 11:21 3 ML Menthol (Nice Jayme) 1 jayme PRN PRN PO 03/09/17 09:30 04/08/17 09:29 03/09/17 10:14 1 JAYME Assessment and Plan Problems Acute myocardial infarction of apical-lateral wall Chest pain Assessment and Plan: This is an 86 yo female who presented two days ago with an acute STEMI s/p catheterization with thrombus evacuation. 1. STEMI: -Recovering well. Has no signs of additional complications at this time -Continue current cardiac meds -ASA 81 mg po daily -Clopidogrel 75 mg po daily -Atorvastatin 80 mg po daily -Metoprolol tartrate 25 mg po q12h -Lisinopril 5 mg po daily -Nitroglycerin .4 mg sublingual prn -May attempt to wean oxygen as tolerated -Tylenol prn for pain 2. GI prophylaxis: -Pantoprazole 40 mg po daily 3. DVT prophylaxis: -Dual antiplatelet therapy and SCDs with compression stockings. 4. Dispo/discharge: -Plan to discharge home this afternoon with home health. -PT/OT recs appreciated. -Will require home physical therapy and home nursing. -Follow up with trimmer hand upon discharge. -Will require cardiopulmonary rehabilitation. Continued [facility] stay due to: ambulation difficulties, multiple IV medications needed Discharge planning: home with home health
--- NOTE | 2017-03-10 17:14 | Hospitalist Progress Note ---
Hospitalist Progress Note Date of Service March 10, 2017. (Rosendo Red, DEISI) Subjective Pt evaluation today including: conversation w/ patient, conversation w/ family (michelle son), physical exam, lab review, review of inpatient medication list Pain: denies any chest pain PO Intake: appetite still decreased Voiding: no voiding problems No chest pain or shortness of breath. Tolerating PO although decreased appetite. Did not void over night, but was able to void this morning with no difficulty. Still feels "weak and worn out" Constitutional: + weakness, No chills, No fatigue, No fever, No problem reported, No see HPI, No sweats, No weight loss Respiratory: No cough, No dyspnea at rest, No dyspnea on exertion, No hemoptysis, No problem reported, No see HPI, No shortness of breath, No sputum, No wheezing Cardiovascular: No PND, No chest pain, No claudication, No edema, No orthopnea, No palpitations, No problem reported, No see HPI Abdomen: No GI bleeding, No constipation, No diarrhea, No nausea, No pain, No problem reported, No see HPI, No vomiting Musculoskeletal: No calf pain, No joint pain, No muscle pain, No problem reported, No see HPI, No swelling Neurologic: No balance problems, No memory loss, No numbness/tingling, No paralysis, No problem reported, No see HPI, No vertigo, No weakness Psychiatric: No anhedonism, No anxiety, No depression symptoms, No insomnia , No problem reported, No see HPI, No substance abuse Skin: No bleeding, No color change, No itch, No new/changing skin lesions, No problem reported, No rash, No see HPI (Rosendo Red, DEISI) Medications medications reviewed (Rosendo Red, DEISI) Objective Vital Signs Date Time Temp Pulse Resp B/P Pulse Ox O2 Delivery O2 Flow Rate FiO2 03/10/17 15:51 36.4 63 20 113/74 97 Nasal Cannula 2.0 03/10/17 12:10 Nasal Cannula 3.0 03/10/17 11:58 36.5 67 18 135/85 96 Nasal Cannula 3.0 03/10/17 11:21 64 16 98 Nasal Cannula 2.0 03/10/17 09:00 Nasal Cannula 3.0 03/10/17 07:37 36.8 65 19 123/75 98 Nasal Cannula 3.0 03/10/17 07:32 97 16 91 Nasal Cannula 2.0 03/10/17 04:00 99 Nasal Cannula 3.0 03/10/17 03:21 36.4 66 20 123/81 99 Nasal Cannula 3.0 Humidified Oxygen 03/10/17 00:00 95 Nasal Cannula 3.0 03/09/17 23:11 37.2 80 18 109/71 95 Nasal Cannula 3.0 Humidified Oxygen 03/09/17 22:00 95 Room Air 03/09/17 20:54 85 121/74 03/09/17 20:15 88 16 92 Room Air (Rosendo Red, CORE MACHINE OPERATOR) Physical Exam General Appearance: no apparent distress Eyes: normal inspection ENT: pharynx normal Neck: supple, no JVD Respiratory/Chest: chest non-tender, lungs clear, normal breath sounds, no respiratory distress Cardiovascular: regular rate, rhythm, no edema, no gallop, no JVD, no murmur Abdomen: normal bowel sounds, non tender, soft Extremities: normal range of motion Neurologic/Psychiatric: alert, normal mood/affect, oriented x 3 Skin: normal color, warm/dry, no rash (Rosendo Red, CORE MACHINE OPERATOR) Laboratory Results Last 24 Hours Test 03/10/17 05:40 White Blood Count 7.54 K/uL Red Blood Count 3.99 M/uL Hemoglobin 11.6 g/dL Hematocrit 35.9 % Mean Corpuscular Volume 90.0 fL Mean Corpuscular Hemoglobin 29.1 pg Mean Corpuscular Hemoglobin Concent 32.3 g/dl Platelet Count 176 K/uL Mean Platelet Volume 10.2 fL Neutrophils (%) (Auto) 68.3 % Lymphocytes (%) (Auto) 19.9 % Monocytes (%) (Auto) 11.4 % Eosinophils (%) (Auto) 0.0 % Basophils (%) (Auto) 0.1 % Neutrophils # (Auto) 5.15 K/uL Lymphocytes # (Auto) 1.50 K/uL Monocytes # (Auto) 0.86 K/uL Eosinophils # (Auto) 0.00 K/uL Basophils # (Auto) 0.01 K/uL RDW Standard Deviation 48.2 fL RDW Coefficient of Variation 14.7 % Immature Granulocyte % (Auto) 0.3 % Immature Granulocyte # (Auto) 0.02 K/uL Sodium Level 136 mmol/L Potassium Level 3.4 mmol/L Chloride Level 100 mmol/L Carbon Dioxide Level 30 mmol/L Anion Gap 6.0 mmol/L Blood Urea Nitrogen 29 mg/dl Creatinine 1.20 mg/dl Est Creatinine Clear Calc Drug Dose 34.9 ml/min Estimated GFR () 46.7 Estimated GFR (Non- 40.3 BUN/Creatinine Ratio 24.1 Random Glucose 95 mg/dl Calcium Level 8.4 mg/dl Magnesium Level 2.4 mg/dl Total Bilirubin 1.7 mg/dl Aspartate Amino Transf (AST/SGOT) 129 U/L Alanine Aminotransferase (ALT/SGPT) 43 U/L Alkaline Phosphatase 79 U/L Total Protein 6.3 gm/dl Albumin 2.9 gm/dl Globulin 3.4 gm/dl Albumin/Globulin Ratio 0.9 (Rosendo Red CRNP) Assessment and Plan This is an 86 yo female who presented two days ago with an acute STEMI s/p catheterization with thrombus evacuation. 1. STEMI: -Recovering well slowly, however no chest pain. -Continue current cardiac meds -ASA 81 mg po daily -Clopidogrel 75 mg po daily -Atorvastatin 80 mg po daily -Metoprolol tartrate 25 mg po q12h -Lisinopril 5 mg po daily -Nitroglycerin .4 mg sublingual prn -wean oxygen as tolerated 2. GI prophylaxis: -Pantoprazole 40 mg po daily 3. DVT prophylaxis: -Dual antiplatelet therapy and SCDs with compression stockings. 4. Dispo/discharge: -Plan was to discharge home this afternoon. Patient felt weak and was worried about disposition. Spoke with veronica Kelly who also had some concerns. Will discharge in the morning after physical therapy works with the patient. -Will require home physical therapy and home nursing. -Follow up with retort kiln burner upon discharge. -Will require cardiopulmonary rehabilitation. Continued [facility] stay due to: ambulation difficulties, other Discharge planning: home with home health (Rosendo Red CRNP) History Chart reviewed and I agree with plan of care. Replace potassium to keep > 4.0 (Keysha Zurita MD)
[2017-03-10] MEDS ORDERED: POTASSIUM CHLORIDE 20 MEQ TABCR PO ONE (17:30)
[2017-03-10] MEDS: IPRATROPIUM BROMIDE/ALBUTEROL respimat INH INH SCH (20:24)
[2017-03-11] VITALS (8 sets, daily range): BP systolic 103–129; BP diastolic 62–83; PULSE 55–66; TEMP 36.3–36.7; O2SAT 93–95
[2017-03-11 09:04] LABS: BUN/CREATININE RATIO 24.2 (10-20); CREATININE 1.2 mg/dl (0.60-1.20); POTASSIUM 3.9 mmol/L (3.5-5.1)
[2017-03-11] MEDS: ATORVASTATIN 40 MG TAB PO SCH (09:07)
[2017-03-11] MEDS: ASPIRIN 81 MG ECTAB PO SCH (09:07)
[2017-03-11] MEDS: PANTOprazole SOD 40 MG TAB PO SCH (09:07)
[2017-03-11] MEDS: METOPROLOL TARTRATE 25 MG TAB PO SCH ×2 (09:07→20:53)
[2017-03-11] MEDS: IPRATROPIUM BROMIDE/ALBUTEROL respimat INH INH SCH ×4 (09:07→20:53)
[2017-03-11] MEDS: LISINOPRIL 5 MG TAB PO SCH (09:07)
[2017-03-11] MEDS: CLOPIDOGREL BISULFATE 75 MG TAB PO SCH (09:07)
[2017-03-11 09:08] LABS: CALCIUM 8.8 mg/dl (8.5-10.1)
[2017-03-11] MEDS ORDERED: FEXOFENADINE HCL 60 MG TAB PO ONE (14:30)
--- NOTE | 2017-03-11 14:31 | CARDIOLOGY PROGRESS NOTE ---
DATE: 03/11/2017 SUBJECTIVE: The patient was seen by me today in her telemetry unit room. She denies any of the chest pain, which was present at the time of her myocardial infarction. She states that she has a persistent very deep aching pain that is worse with deep inspiration. She denies any dyspnea at rest. No orthopnea or PND. Mild dyspnea walking about the room. No palpitations, lightheadedness, or syncope. No abdominal pain or nausea. No urinary complaints. No cerebrovascular complaints. No pain at her right radial catheterization site. No leg pain. CURRENT MEDICATIONS: Combivent 1 puff q.i.d., aspirin 81 mg daily, clopidogrel 75 mg daily, atorvastatin 80 mg daily, lisinopril 5 mg daily, pantoprazole 40 mg daily, and metoprolol tartrate 25 mg q. 12 hours. ALLERGIES AND ADVERSE DRUG REACTIONS: OXYCODONE. PHYSICAL EXAMINATION: VITAL SIGNS: Oral temperature today 36.6, pulse 55, blood pressure 115/77 and pulse oximetry on room air 94%. NECK: No jugular venous distention. LUNGS: Normal respiratory effort. Clear. No rales or wheezes. HEART: Regular rate and rhythm. S1 and S2 normal. No S3 or S4 heard. 2/6 systolic murmur at the second right intercostal space and upper left sternal border. No diastolic murmur or rub heard. ABDOMEN: Soft. Nontender. No palpable masses or organomegaly. No bruits. EXTREMITIES: Right radial catheterization site with mild ecchymoses. No bleeding. No evidence for arterial insufficiency in the right hand. Trace pretibial edema bilaterally. NEUROLOGIC: Alert and oriented x3. Motor grossly intact. PSYCHIATRIC: Affect normal. Electrocardiogram yesterday revealed normal sinus rhythm, right bundle branch block, left anterior fascicular block, evolving lateral infarction. Echocardiogram in March 08 revealed mild concentric LVH, LV ejection fraction 50%-55%, apical akinesis, mild to moderate aortic regurgitation, mild aortic sclerosis without stenosis, mild mitral regurgitation, mild to moderate tricuspid regurgitation, and moderate to severe pulmonary hypertension. Estimated pulmonary artery systolic pressure is 60-65 mmHg. LABORATORY DATA: Yesterday with hemoglobin 11.6, hematocrit 35.9, and platelet count 176. Metabolic profile today with sodium 135, potassium 3.9, chloride 98, carbon dioxide 29, BUN 29, creatinine 1.20, and random glucose 84. ASSESSMENT: 1. Status post acute anterior myocardial infarction on 03/07/2017 secondary to total occlusion of LAD. Successful intervention to LAD occlusion with balloon angioplasty and aspiration thrombectomy. No residual underlying stenosis following scientologist of flow from the mid and distal LAD. Following intervention to the LAD, there was evidence of thromboembolic event with no reflow into the distal LAD. Improvement with intracoronary nicardipine and adenosine as wells aspiration thrombectomy. At the completion of procedure, there was MAREN-3 flow into the apical LAD. There was a small residual filling defect in the distal LAD. This was a very localized area. 2. Congestive heart failure complicating her myocardial infarction. Currently, no signs on exam of pulmonary vascular congestion. Minimal peripheral edema. She states that her peripheral edema is chronic. 3. Blood pressure and heart rate well controlled. 4. No vascular complications at the right radial catheterization site. 5. Prerenal azotemia. Currently, not on any diuretic therapy. 6. Lipid profile with total cholesterol of 166, direct LDL 84, and HDL 68. Hemoglobin A1c on this admission was 5.4. RECOMMENDATIONS: 1. Change metoprolol to metoprolol succinate ER 50 mg daily. 2. Continue aspirin, clopidogrel, lisinopril, and atorvastatin. 3. Increase activity as tolerated. 4. From a cardiac standpoint, the patient could be discharged home. VIKRAM
[2017-03-11] MEDS: TRIAMCINOLONE ACET NASAL SPRAY 10.8ML BTL NAE SCH (15:30)
[2017-03-11] MEDS: FEXOFENADINE HCL 60 MG TAB PO SCH (20:53)
[2017-03-12] VITALS (7 sets, daily range): BP systolic 110–136; BP diastolic 72–83; PULSE 57–72; TEMP 36.6–37.3; O2SAT 92–98
--- NOTE | 2017-03-12 07:42 | Progress Note ---
Subjective Date of Service: March 11, 2017. Subjective Pt evaluation today including: conversation w/ patient, physical exam, chart review, lab review, conversation w/ safety consultant (cardiology) Pain: no chest pain; no abd pain PO Intake: just on clears, but tolerating this Voiding: no voiding problems no events overnight tele normal no chest pain cleared by PT for home but has not been out of bed much the last 24 hours c/o chronic cough and frequent throat clearing Problem List Medical Problems: (1) Acute myocardial infarction of apical-lateral wall Status: Acute (2) Chest pain Status: Acute (3) RBBB Status: Acute Review of Systems Constitutional: No fever Cardiac: No PND, No chest pain, No edema, No orthopnea Abdomen: No nausea, No pain, No vomiting Objective Vital Signs Date Time Temp Pulse Resp B/P Pulse Ox O2 Delivery O2 Flow Rate FiO2 03/12/17 00:00 Room Air 03/11/17 23:44 36.7 66 16 112/73 94 Room Air 03/11/17 20:00 Room Air 03/11/17 19:29 36.3 63 20 108/72 93 Room Air 03/11/17 16:00 Room Air 03/11/17 15:34 36.4 57 18 103/62 94 Room Air 03/11/17 12:06 36.6 55 20 115/77 94 Room Air 03/11/17 12:00 Room Air 03/11/17 08:00 Room Air 03/11/17 07:47 36.4 63 16 129/83 94 Room Air 03/11/17 04:00 93 Room Air 03/11/17 03:15 36.6 65 16 123/77 93 Room Air Physical Exam General Appearance: no apparent distress ENT: pharynx normal Neck: no JVD Respiratory/Chest: lungs clear, no respiratory distress, no accessory muscle use Cardiovascular: regular rate, rhythm, no gallop, no murmur Abdomen: normal bowel sounds, non tender, soft, no organomegaly Extremities: no pedal edema Neurologic/Psychiatric: alert, oriented x 3 Laboratory Results Last 24 Hours Test 03/11/17 07:45 Sodium Level 135 mmol/L Potassium Level 3.9 mmol/L Chloride Level 98 mmol/L Carbon Dioxide Level 29 mmol/L Anion Gap 8.0 mmol/L Blood Urea Nitrogen 29 mg/dl Creatinine 1.20 mg/dl Est Creatinine Clear Calc Drug Dose 34.7 ml/min Estimated GFR () 46.7 Estimated GFR (Non- 40.3 BUN/Creatinine Ratio 24.2 Random Glucose 94 mg/dl Calcium Level 8.8 mg/dl Assessment and Plan 86yo female - 1. CAD, s/p STEMI due to totally occluded LAD, s/p angioplasty, atherectomy, etc by Dr. Greer. Cont asa, plavix, beta umu, JOS, statin, nitrates prn. Doing well from cardiovascular standpoint. 2. acute systolic/diastolic CHF - 2nd to STEMI. acute component resolved appears euvolemic 3. abnormal LFTs - will need to be repeated before d/c. 4. nausea/dyspepsia - resolved 5. DVT proph - heparin 6. wheezing - resolved 7. CKD stage 3 - creatinine stable at this time. 8. FEN - advance diet, lytes stable. 9. frequent throat clearing - post-nasal drip? reflux? already on PPI add nasal steroid & anabel BID spoke with Dr. Greer - hopefully home tomorrow Discharge planning: home with home health
[2017-03-12] MEDS: CLOPIDOGREL BISULFATE 75 MG TAB PO SCH (08:31)
[2017-03-12] MEDS: ATORVASTATIN 40 MG TAB PO SCH (08:31)
[2017-03-12] MEDS: ASPIRIN 81 MG ECTAB PO SCH (08:31)
[2017-03-12] MEDS: IPRATROPIUM BROMIDE/ALBUTEROL respimat INH INH SCH ×4 (08:32→21:21)
[2017-03-12] MEDS: METOPROLOL SUCC 50MG EXT REL TAB PO SCH (08:32)
[2017-03-12] MEDS: FEXOFENADINE HCL 60 MG TAB PO SCH ×2 (08:32→21:21)
[2017-03-12] MEDS: PANTOprazole SOD 40 MG TAB PO SCH (08:32)
[2017-03-12] MEDS: TRIAMCINOLONE ACET NASAL SPRAY 10.8ML BTL NAE SCH (08:32)
[2017-03-12] MEDS: LISINOPRIL 5 MG TAB PO SCH (08:33)
[2017-03-12 09:30] LABS: BUN/CREATININE RATIO 24.2 (10-20); CALCIUM 8.3 mg/dl (8.5-10.1); CREATININE 1.2 mg/dl (0.60-1.20); POTASSIUM 3.8 mmol/L (3.5-5.1)
[2017-03-12 09:33] LABS: ALB/GLOB RATIO 0.8 (0.9-2)
--- NOTE | 2017-03-12 11:36 | DIAGNOSTIC IMAGING REPORT ---
CHEST 2 VIEWS ROUTINE CLINICAL HISTORY: Recent CHF, persistent cough, dyspnea COMPARISON STUDY: Chest radiograph March 08, 2017. FINDINGS: There is no pneumothorax. Moderate left and small right pleural effusions have increased since exam of March 08, 2017. Bibasilar opacities are noted. Pulmonary edema has improved since prior exam. Cardiomegaly is unchanged. IMPRESSION: 1. Increase in size of moderate left and small right pleural effusions with associated bibasilar opacities which likely reflect atelectasis. 2. Interval improvement in pulmonary edema. Electronically signed by: Kishan Carrasco M.D. 03/12/2017 11:35 AM Dictated Date/Time: 03/12/2017 11:31 AM
--- NOTE | 2017-03-12 11:51 | Medical Student: [facility] ---
Med Student Progress Note Date of Service March 12, 2017. Subjective Pt evaluation today including: conversation w/ patient, physical exam, chart review, lab review, review of studies Pain: mild leg pain PO Intake: regular diet Voiding: no voiding problems no acute events overnight. patient reports she has been eating solid foods without difficulty, but her appetite is decreased. she also reports feeling somewhat fatigued but says she is sleeping well enough. denies chest pain, shortness of breath. says she occasionally has some mid chest pain associated with eating which resolves with sips of water. she has walked to and from the bathroom but not much in the halls. no other complaints. Review of Systems Constitutional: + fatigue, No chills, No fever Respiratory: + cough, No shortness of breath, No sputum, No wheezing Cardiac: No chest pain, No orthopnea Abdomen: No nausea, No pain Musculoskeletal: No joint pain Objective Vital Signs Date Time Temp Pulse Resp B/P Pulse Ox O2 Delivery O2 Flow Rate FiO2 03/12/17 07:48 36.9 62 22 133/74 93 Room Air 03/12/17 04:02 36.8 67 17 121/77 92 Room Air 03/12/17 04:00 Room Air 03/12/17 00:00 Room Air 03/11/17 23:44 36.7 66 16 112/73 94 Room Air 03/11/17 20:00 Room Air 03/11/17 19:29 36.3 63 20 108/72 93 Room Air 03/11/17 16:00 Room Air 03/11/17 15:34 36.4 57 18 103/62 94 Room Air 03/11/17 12:06 36.6 55 20 115/77 94 Room Air 03/11/17 12:00 Room Air Physical Exam General Appearance: WD/WN, no apparent distress ENT: hearing grossly normal, pharynx normal Neck: supple, no JVD Respiratory/Chest: chest non-tender, normal breath sounds, + crackles ( bibasilar ) Cardiovascular: regular rate, rhythm, no edema, no gallop, + systolic murmur ( II/ at upper sternal borders) Abdomen: non tender, soft Extremities: + swelling (1+ non-pitting edema of LEs) Neurologic/Psychiatric: alert, oriented x 3 Skin: normal color, no rash Laboratory Results Last 24 Hours Test 03/12/17 08:41 Sodium Level 137 mmol/L Potassium Level 3.8 mmol/L Chloride Level 101 mmol/L Carbon Dioxide Level 30 mmol/L Anion Gap 6.0 mmol/L Blood Urea Nitrogen 29 mg/dl Creatinine 1.20 mg/dl Est Creatinine Clear Calc Drug Dose 34.7 ml/min Estimated GFR () 46.7 Estimated GFR (Non- 40.3 BUN/Creatinine Ratio 24.2 Random Glucose 115 mg/dl Calcium Level 8.3 mg/dl Total Bilirubin 1.2 mg/dl Aspartate Amino Transf (AST/SGOT) 66 U/L Alanine Aminotransferase (ALT/SGPT) 42 U/L Alkaline Phosphatase 100 U/L Total Protein 7.1 gm/dl Albumin 3.1 gm/dl Globulin 4.0 gm/dl Albumin/Globulin Ratio 0.8 Medications Current Inpatient Medications Medications (Trade) Dose Ordered Sig/Reji Route Start Time Stop Time Status Last Admin Dose Admin Nitroglycerin (Nitrostat Tab) 0.4 mg UD PRN SL 03/07/17 18:00 04/06/17 17:59 03/08/17 06:39 0.4 MG Atropine Sulfate (Atropine Sulfate 0.1MG/Ml Inj) 0.5 mg ONE PRN IV 03/07/17 18:00 04/06/17 17:59 Ondansetron HCl 4 mg 4 mg Q6H PRN IV 03/07/17 18:00 04/06/17 17:59 03/08/17 23:40 4 MG Ondansetron HCl/ Dextrose (Zofran Inj/D5 50ml) 54 ml @ 200 mls/hr Q6H PRN IV 03/07/17 18:00 04/06/17 17:59 Aspirin (Ecotrin Tab) 81 mg QAM PO 03/08/17 09:00 04/07/17 08:59 03/12/17 08:31 81 MG Clopidogrel Bisulfate (plAVix TAB) 75 mg QAM PO 03/08/17 09:00 04/07/17 08:59 03/12/17 08:31 75 MG Atorvastatin Calcium (Lipitor Tab) 80 mg QAM PO 03/08/17 09:00 04/07/17 08:59 03/12/17 08:31 80 MG Acetaminophen (Tylenol Tab) 650 mg Q4H PRN PO 03/07/17 18:00 04/06/17 17:59 03/11/17 09:15 650 MG Lisinopril (Zestril Tab) 5 mg QAM PO 03/08/17 09:00 04/07/17 08:59 03/12/17 08:33 5 MG Pantoprazole Sodium (Protonix Tab) 40 mg QAM PO 03/08/17 09:00 04/07/17 08:59 03/12/17 08:32 40 MG Menthol (Nice Nicolás) 1 nicolás PRN PRN PO 03/09/17 09:30 04/08/17 09:29 03/09/17 10:14 1 NICOLÁS Albuterol/ Ipratropium (Combivent Respimat Inh) 1 puffs QID INH 03/10/17 21:00 04/09/17 20:59 03/12/17 08:32 1 PUFFS Metoprolol Succinate (Toprol Xl Tab) 50 mg QAM PO 03/12/17 09:00 04/11/17 08:59 03/12/17 08:32 50 MG Triamcinolone Acetonide (Nasacort Allergy 24hr) 2 sprays DAILY SHERRY 03/11/17 14:30 04/10/17 14:29 03/12/17 08:32 2 SPRAYS Fexofenadine HCl (Sandie Tab) 60 mg BID PO 03/11/17 21:00 04/10/17 20:59 03/12/17 08:32 60 MG Assessment and Plan Problems Acute myocardial infarction of apical-lateral wall Assessment and Plan: This is an 86 yo female who presented two days ago with an acute STEMI s/p catheterization with thrombus evacuation. 1. STEMI: -Recovering well. Has no signs of additional complications at this time -Continue current cardiac meds -ASA 81 mg po daily -Clopidogrel 75 mg po daily -Atorvastatin 80 mg po daily -Metoprolol tartrate 25 mg po q12h -Lisinopril 5 mg po daily -Nitroglycerin .4 mg sublingual prn -Off supplemental oxygen now -Tylenol prn for pain 2. Bilateral pleural effusion: -Likely secondary to heart failure following STEMI -Left>right -40 mg lasix now to initiate diuresis -Repeat CXR tomorrow 3. GI prophylaxis: -Pantoprazole 40 mg po daily 4. DVT prophylaxis: -Dual antiplatelet therapy and SCDs with compression stockings. 5. Dispo/discharge: -PT/OT recs appreciated. Would like to assess walking before discharge. -Will require home physical therapy and home nursing. -Follow up with coal tower operator upon discharge. -Will require cardiopulmonary rehabilitation. -Will make discharge decisions following CXR tomorrow and functional status with PT/OT. Continued [facility] stay due to: ambulation difficulties Discharge planning: home with home health
[2017-03-12] MEDS ORDERED: POTASSIUM CHLORIDE 20 MEQ TABCR PO ONE (12:15)
[2017-03-12] MEDS ORDERED: FUROSEMIDE INJ 40 MG in SYRINGE 0 ML IV ONE (12:15)
--- NOTE | 2017-03-13 00:35 | Progress Note ---
Subjective Date of Service: March 12, 2017. Subjective Pt evaluation today including: conversation w/ patient, physical exam, chart review, lab review, review of studies (cxr), conversation w/ agricultural consultant ( cardiology - Dr. Greer), review of inpatient medication list Pain: ?pleuritic type pain but no substernal pain PO Intake: fair at best Voiding: no voiding problems had diarrhea x 1 earlier today main complaint is that of fatigue and being tired tele stable overnight has only been out of bed to the bathroom not the hallways for longer walks denies nausea or emesis Problem List Medical Problems: (1) Acute myocardial infarction of apical-lateral wall Status: Acute (2) Chest pain Status: Acute (3) RBBB Status: Acute Review of Systems Constitutional: No fever Respiratory: + cough, + dyspnea on exertion, No sputum, No wheezing Cardiac: + chest pain, + see HPI, No PND, No edema, No orthopnea Abdomen: No pain Objective Vital Signs Date Time Temp Pulse Resp B/P Pulse Ox O2 Delivery O2 Flow Rate FiO2 03/12/17 23:49 36.8 65 16 136/83 96 Room Air 03/12/17 20:00 Room Air 03/12/17 19:04 36.6 57 18 110/74 97 Room Air 03/12/17 16:07 Room Air 03/12/17 15:28 37.1 60 18 114/72 96 Room Air 03/12/17 13:30 72 98 03/12/17 12:43 37.3 69 20 129/74 96 Room Air 03/12/17 12:00 Room Air 03/12/17 08:05 Room Air 03/12/17 07:48 36.9 62 22 133/74 93 Room Air 03/12/17 04:02 36.8 67 17 121/77 92 Room Air 03/12/17 04:00 Room Air Physical Exam General Appearance: no apparent distress ENT: pharynx normal Neck: no JVD Respiratory/Chest: no respiratory distress, no accessory muscle use, + decreased breath sounds (left base > right base; no rales or wheeze) Cardiovascular: regular rate, rhythm, no gallop, + systolic murmur (1/6 LSB) Abdomen: normal bowel sounds, non tender, soft, no organomegaly Extremities: no pedal edema Neurologic/Psychiatric: alert, oriented x 3 Laboratory Results Last 24 Hours Test 03/12/17 08:41 Sodium Level 137 mmol/L Potassium Level 3.8 mmol/L Chloride Level 101 mmol/L Carbon Dioxide Level 30 mmol/L Anion Gap 6.0 mmol/L Blood Urea Nitrogen 29 mg/dl Creatinine 1.20 mg/dl Est Creatinine Clear Calc Drug Dose 34.7 ml/min Estimated GFR () 46.7 Estimated GFR (Non- 40.3 BUN/Creatinine Ratio 24.2 Random Glucose 115 mg/dl Calcium Level 8.3 mg/dl Total Bilirubin 1.2 mg/dl Aspartate Amino Transf (AST/SGOT) 66 U/L Alanine Aminotransferase (ALT/SGPT) 42 U/L Alkaline Phosphatase 100 U/L Total Protein 7.1 gm/dl Albumin 3.1 gm/dl Globulin 4.0 gm/dl Albumin/Globulin Ratio 0.8 Assessment and Plan 86yo female - 1. CAD, s/p STEMI due to totally occluded LAD, s/p angioplasty, atherectomy, etc by Dr. Greer. Cont asa, plavix, beta umu, JOS, statin, nitrates prn. Stable from cardiovascular standpoint. 2. acute systolic/diastolic CHF - 2nd to STEMI. appears euvolemic on exam, but cxr obtained today due to pleuritic type complaints. the pulmonary edema is pattern is much improved, but now she has a worsening left-sided effusion and minimal on the right the effusions are likely transudative in nature lasix 40mg IV x 1 and reassess clinically in the AM 3. abnormal LFTs - nearly resolved 4. nausea/dyspepsia - resolved; cont PPI 5. DVT proph - heparin 6. wheezing - resolved; was 2nd to acute CHF 7. CKD stage 3 - creatinine stable at this time. 8. FEN - lytes stable 9. frequent throat clearing - post-nasal drip? reflux? cont PPI, nasal steroid, antihistamine 10. b/l pleural effusions, worse on left - lasix 40mg IV x 1 follow response if effusion worsens may need thoracentesis cleared by PT for home no discharge today due to #10 leave on telemetry Continued [facility] stay due to: ambulation difficulties, other (pleural effusions ) Discharge planning: home with home health
[2017-03-13 04:30] VITALS: BP 119/71; PULSE 62; TEMP 36.5; O2SAT 96
[2017-03-13 08:05] VITALS: BP 124/85; PULSE 62; TEMP 36.5; O2SAT 95
[2017-03-13 08:20] VITALS: O2SAT 95
[2017-03-13] MEDS: IPRATROPIUM BROMIDE/ALBUTEROL respimat INH INH SCH (08:21)
[2017-03-13] MEDS: CLOPIDOGREL BISULFATE 75 MG TAB PO SCH (08:22)
[2017-03-13] MEDS: ATORVASTATIN 40 MG TAB PO SCH (08:22)
[2017-03-13] MEDS: ASPIRIN 81 MG ECTAB PO SCH (08:22)
[2017-03-13] MEDS: METOPROLOL SUCC 50MG EXT REL TAB PO SCH (08:23)
[2017-03-13] MEDS: LISINOPRIL 5 MG TAB PO SCH (08:23)
[2017-03-13] MEDS: PANTOprazole SOD 40 MG TAB PO SCH (08:24)
[2017-03-13 08:26] LABS: CALCIUM 8.2 mg/dl (8.5-10.1); CREATININE 1.1 mg/dl (0.60-1.20); POTASSIUM 3.6 mmol/L (3.5-5.1)
[2017-03-13] MEDS: FEXOFENADINE HCL 60 MG TAB PO SCH (08:30)
[2017-03-13 08:32] LABS: MAGNESIUM 2.3 mg/dl (1.8-2.4)
[2017-03-13] MEDS: TRIAMCINOLONE ACET NASAL SPRAY 10.8ML BTL NAE SCH (08:33)
--- NOTE | 2017-03-13 10:18 | Progress Note ---
Progress Note Date of Service March 13, 2017. Progress Note I responded to code blue to find the patient unresponsive, pulseless, CPR and bagging with 100% FIO2 in progress, PEA on the monitor. Epinephrine was given, 1mg IV and I intubated the patient using a 4.0 Mac blade and 7.0 ETT. + BS bilaterally, + CO2 detector. ACLS protocol continued with at least 3 rounds of epi, atropine x1, magnesium and sodium bicarbonate. See code sheet for further details. NS was running and IO access obtained early in the code. No pulse was regained despite all efforts. Labs were reviewed and the patient's son was present and requested the code be stopped. Time of 09:53.
[2017-03-13] MEDS ORDERED: SODIUM CHLORIDE 0.9% INJ 10 ML VIAL IV ONE (14:10)
[2017-03-13] MEDS ORDERED: SODIUM CHLORIDE 0.9% 10ML FLUSH IV ONE (14:10)
[2017-03-13] MEDS ORDERED: MAG SULFATE 50% 1GM/2ML VIAL IV ONE (14:10)
[2017-03-13] MEDS ORDERED: CALCIUM CHLORIDE 10% 10 ML SYR IV ONE (14:10)
[2017-03-13] MEDS ORDERED: SODIUM BICARB 8.4% INJ 50 MEQ/50 ML SYR IV ONE (14:10)
[2017-03-13] MEDS ORDERED: ATROPINE SULFATE 0.1 MG/ML 10 ML SYR IV ONE (14:10)
--- NOTE | 2017-03-13 14:49 | Death Summary ---
Summary of Admission Date March 07, 2017 at 18:20 Date & Time of March 13, 2017. 0953 Cause of acute [place] Hospital Course 86yo F s/p STEMI due to totally occluded LAD, s/p angioplasty, atherectomy, etc by Dr. Greer. Pt abruptly had cardiac arrest while caregiver at bedside, attempts at ACLS were made, family was present and after no ROSC despite cpr, meds and ventilation, her sons decision to stop resuscitation was made and pt at 0953 previously in the hospital stay Acute TX, acute systolic/diastolic CHF - 2nd to STEMI b/l pleural effusions, worse on left - DVT proph - heparin CKD stage 3 -
== END 2017-03-13 14:11 | disposition expired | DRG 250 ==
LOC: ENRESERVTM → ENRESERVDT → EDBD 15:52 → C.EDB 15:53 → EDBEDREQ 16:25 → C.MSICU 18:20 → C.2T 03-08 18:44
PROVIDERS: ADMIT Anesthesiology Critical Care Medicine; ATTEND Internal Medicine
PROC: 4A023N7 Measurement of Cardiac Sampling and Pressure, Left Heart, Percutaneous Approach (ICD-10-PCS; principal; 2017-03-07 15:59)
PROC: 02C03ZZ Extirpation of Matter from Coronary Artery, One Artery, Percutaneous Approach (ICD-10-PCS; principal; 2017-03-07 15:59)
PROC: B2151ZZ Fluoroscopy of Left Heart using Low Osmolar Contrast (ICD-10-PCS; principal; 2017-03-07 15:59)
PROC: B2111ZZ Fluoroscopy of Multiple Coronary Arteries using Low Osmolar Contrast (ICD-10-PCS; principal; 2017-03-07 15:59)
PROC: 5A12012 Performance of Cardiac Output, Single, Manual (ICD-10-PCS; 2017-03-13)
DX: I21.02 ST elevation (STEMI) myocardial infarction involving left anterior descending coronary artery (principal); I50.41 Acute combined systolic (congestive) and diastolic (congestive) heart failure; Z85.43 Personal history of malignant neoplasm of ovary; I45.10 Unspecified right bundle-branch block; Z79.82 Long term (current) use of aspirin; I25.10 Atherosclerotic heart disease of native coronary artery without angina pectoris; N18.3 Chronic kidney disease, stage 3 (moderate); I25.41 Coronary artery aneurysm; I35.1 Nonrheumatic aortic (valve) insufficiency; I27.2 Other secondary pulmonary hypertension